=== PATIENT | female | born 1970 | race African-American/Black ===

== ENCOUNTER 2019-08-26 07:30 | Inpatient (IN) | payer SELFPAY ==
[2019-08-26] VITALS (10 sets, daily range): BP systolic 146–178; BP diastolic 95–124; BMI 34.8
[~2019-08-26] VITALS: Ht 157.5 cm; Wt 109.1 kg
[2019-08-26] MEDS ORDERED: IBUPROFEN IB100 MG PO (07:57)
[2019-08-26 10:21] LABS: ALBUMIN 3.2 g/dL (3.4-5.0); ANION GAP 14.4 mmol/L (8-16); BILIRUBIN - TOTAL 3.1 mg/dL (0.2-1.3); CALCIUM 8.4 mg/dL (8.5-10.1); CARBON DIOXIDE 23.4 mmol/L (21.0-32.0); CREATININE - SERUM 0.9 mg/dL (0.6-1.3); POTASSIUM - SERUM 3.8 mmol/L (3.5-5.1); PROTEIN - SERUM 6.4 g/dL (6.4-8.2)
[2019-08-26 10:28] LABS: TROPONIN-I 0.127 ng/mL (0.000-0.060)
--- NOTE | 2019-08-26 10:28 | NUR ---
CRITICAL LAB RCVD FROM [facility], LAB: TROPONIN 0.127, DR ARTEAGA NOTIFIED
--- NOTE | 2019-08-26 10:57 | NUR ---
2ND IV SITED FOR CTA
[2019-08-26 11:00] LABS: HEMATOCRIT 30.5 % (36.0-48.0); HEMOGLOBIN 10.6 g/dL (12-16); MCHC 34.8 g/dL (31.0-37.0); MCV 89.2 fL (80.0-100.0); PLATELET COUNT 360 10x3/uL (130-400); RBC 3.42 10x6/uL (4.00-5.40); RDW 20.3 % (11.5-14.5); WBC 14.9 10x3/uL (4.8-10.8)
--- NOTE | 2019-08-26 11:48 | NUR ---
RCVD TC FROM DR HOLM (RADIOLOGIST) + HUSSEIN PE AND MILD PULMONARY EDEMA VS PNA. DR ARTEAGA NOTIFIED
--- NOTE | 2019-08-26 11:49 | NUR ---
O2 SATS 89-91% ON RA O2 PLACED @ 2 L PNC AND IMMED IMPROVED TO 98 %
[2019-08-26 12:35] LABS: ANISOCYTOSIS 1+; LYMPHOCYTES 18 % (15-50); MONOCYTES 9 % (2-11); NEUTROPHILS 68 % (40-80); PLATELET ESTIMATE NORMAL; POIKILOCYTOSIS 1+; TARGET CELLS OCC
[2019-08-26 12:36] LABS: POLYCHROMASIA OCC; SCHISTOCYTES OCC
--- NOTE | 2019-08-26 13:46 | NUR ---
ATTEMPTED TO CALL REPORT, NURSE UNAVAILABLE
--- NOTE | 2019-08-26 14:21 | NUR ---
REPORT CALLED TO CHAKA HERRERA
--- NOTE | 2019-08-26 14:30 | NUR ---
TRANSPORTED TO ROOM #2111, CONDITION STABLE
--- NOTE | 2019-08-26 19:38 | NUR ---
PT ALERT AND ORIENTED X4 NEEDS SEEN TOO AT THIS TIME BED LOW AND LOCKED AND PT HAS CALL LIGHT FAMILY AT BEDSIDE
[2019-08-27] VITALS: BP 158/101
[2019-08-27 04:00] VITALS: BP 156/92
--- NOTE | 2019-08-27 05:14 | NUR ---
I have reviewed this patient and I concur with the Shift Assessment completed by the Licensed Practical Nurse today this shift.
[2019-08-27 08:12] LABS: % SATURATION 26 % (15-55); IRON 71 ug/dl (35-150); TOTAL IRON BIND CAPACITY 267 ug/dl (260-445); UNSAT IRON BIND CAPACITY 196 ug/dl (150-375)
--- NOTE | 2019-08-27 08:14 | NUR ---
REPORT RECIEVED. RR EVEN AND UNLABORED ON RA. PT HAS A R HAND PIV AND A R FA PIV INFUSING NS @ 30. BED LOCKED AND IN LOWEST POSITION, CALL LIGHT WITHIN REACH. WILL CTM.
[2019-08-27 08:30] LABS: ALBUMIN 3.1 g/dL (3.4-5.0); ALKALINE PHOSPHATASE 121 U/L (30-120); ALT (SGPT) 23 U/L (10-68); BILIRUBIN - TOTAL 1.86 mg/dL (0.2-1.3); CALC OSMOLALITY 282 mosm/kg (275-300); CALCIUM 8.3 mg/dL (8.5-10.1); CARBON DIOXIDE 27.3 mmol/L (21.0-32.0); CHLORIDE - SERUM 107 mmol/L (98-107); CKMB 1.2 U/L (0.0-3.6); CREATINE KINASE 20 UL (21-215); FERRITIN 203 ng/mL (3-244); GLUCOSE 108 mg/dL (74-106); PHOSPHOROUS 4.6 mg/dL (2.5-4.9); SODIUM 142 mmol/L (136-145); UREA NITROGEN 11 mg/dL (7-18); eGFR NON AFRICAN AMERICAN 63 mL/min (90-120)
[2019-08-27 08:34] LABS: POTASSIUM - SERUM 4.4 mmol/L (3.5-5.1)
[2019-08-27 08:35] LABS: TROPONIN-I 0.096 ng/mL (0.000-0.060)
[2019-08-27 09:55] LABS: HEMATOCRIT 29.4 % (36.0-48.0); HEMOGLOBIN 10.4 g/dL (12-16); MCH 31.4 pg (26.0-34.0); MCHC 35.4 g/dL (31.0-37.0); MCV 88.8 fL (80.0-100.0); MEAN PLATELET VOLUME 10.2 fL (7.4-10.4); PLATELET COUNT 347 10x3/uL (130-400); RBC 3.31 10x6/uL (4.00-5.40); RDW 18.9 % (11.5-14.5); WBC 16.7 10x3/uL (4.8-10.8)
[2019-08-27 10:04] VITALS: BP 140/82
[2019-08-27 11:02] LABS: EOSINOPHILS 1 % (0-7); LYMPHOCYTES 22 % (15-50); MONOCYTES 15 % (2-11); NEUTROPHILS 62 % (40-80); PLATELET ESTIMATE NORMAL
[2019-08-27 11:05] LABS: ANISOCYTOSIS OCC; POIKILOCYTOSIS OCC; POLYCHROMASIA OCC
[2019-08-27 11:06] LABS: ELLIPTOCYTES OCC; SCHISTOCYTES OCC
[2019-08-27 11:07] LABS: HYPOCHROMASIA OCC; ROULEAUX OCC
[2019-08-27 14:31] VITALS: BP 147/75
--- NOTE | 2019-08-27 18:17 | NUR ---
I have reviewed this patient and I concur with the Shift Assessment completed by the Licensed Practical Nurse today this shift.
[2019-08-27 18:56] VITALS: BP 147/85
--- NOTE | 2019-08-27 19:22 | NUR ---
AWAKE AND ALERT BED LOW AND LOCKED PT SEEMS TO BE IN PAIN BUT REFUSES PAIN MED AT THIS TIME NO OTHER NEEDS CALL LIGHT IS WITH PT
[2019-08-27 20:00] VITALS: BP 165/93
[2019-08-28] VITALS (7 sets, daily range): BP systolic 138–151; BP diastolic 84–100; Ht 157.5 cm; Wt 109.1 kg
--- NOTE | 2019-08-28 03:08 | NUR ---
I have reviewed this patient and I concur with the Shift Assessment completed by the Licensed Practical Nurse today this shift.
--- NOTE | 2019-08-28 07:42 | NUR ---
RECIEVED REPORT. PATIENT IS LAYING ON HER BACK IN BED AND DENIES ANY NEEDS AT THIS TIME. SHE IS AWARE THAT WE NEED TO COLLECT A STOOL FROM HER AND SIGN IS ON THE DOOR.
[2019-08-28 08:14] LABS: ALBUMIN 2.7 g/dL (3.4-5.0); ANION GAP 8.8 mmol/L (8-16); BILIRUBIN - TOTAL 1.27 mg/dL (0.2-1.3); CALCIUM 8.3 mg/dL (8.5-10.1); CREATININE - SERUM 0.9 mg/dL (0.6-1.3); MAGNESIUM - SERUM 2.1 mg/dL (1.8-2.4); PHOSPHOROUS 3.9 mg/dL (2.5-4.9); POTASSIUM - SERUM 3.8 mmol/L (3.5-5.1); PROTEIN - SERUM 5.9 g/dL (6.4-8.2)
[2019-08-28 08:32] LABS: HEMATOCRIT 28.5 % (36.0-48.0); HEMOGLOBIN 9.9 g/dL (12-16); MCH 30.8 pg (26.0-34.0); MCHC 34.7 g/dL (31.0-37.0); MCV 88.8 fL (80.0-100.0); MEAN PLATELET VOLUME 9.7 fL (7.4-10.4); PLATELET COUNT 384 10x3/uL (130-400); RBC 3.21 10x6/uL (4.00-5.40); RDW 19.1 % (11.5-14.5)
[2019-08-28 11:10] LABS: HAPTOGLOBIN 31 mg/dL (42-296)
--- NOTE | 2019-08-28 11:47 | EC ---
PATIENT:MADISON MARTINEZ DATE OF SERVICE: 08/26/19 SEX: F MEDICAL RECORD: [id number] DATE OF : [birth year] LOCATION:D.M2 D.211 AGE OF PATIENT: 49 ADMISSION DATE: 08/26/19 REFERRING PHYSICIAN: INTERPRETING PHYSICIAN: ACOSTA ZAMUDIO MD ECHOCARDIOGRAM REPORT ECHO CHARGES 4 ECHO COMPLETE Date: 08/26/19 CLINICAL DIAGNOSIS: ELEVATED TROPONIN, PULMONARY EDEMA ECHOCARDIOGRAPHIC MEASUREMENTS (adult normal given) AC root (d.<3.7cm) 2.3 cm LV Septum d (<1.2 cm> 1.1 cm Valve Excursion 1.7 cm LV Septum (systole) 1.2 cm Left Atria (s.<4.0cm> 3.5 cm LVPW d(<1.2cm) 0.9 cm RV (d.<2.3cm) 3.1 cm LVPW (sytole) 1.0 cm LV diastole(<5.6CM) 4.8 cm MV E-F(>70mm/sec) cm LV systole 4.0 cm LVOT Diameter 2.0 cm MV exc.(>10mm) cm Est.ejection fraction (50-75%) % DOPPLER: LVIT cm/sec A 85 cm/sec E 63 cm/sec LA cm/sec RVSP 43.4 mmHg LVOT 122 cm/sec AOP1/2T m/s Asc. Ao 134 cm/sec RVOT 61 cm/sec RA cm/sec PA 80 cm/sec AV Gradient Peak 7.1 mmHg AV Mean 4.7 mmHg AV Area 2.3 cm MV Gradient Peak 4.0 mmHg MV Mean 1.8 mmHg MV Area cm COMMENTS: Consulting Intern: Monique [facility] Welder And Fitter: 1 Dr. Zamudio TAPE# PACS Pericardial Effusion N DATE OF SERVICE: ECHOCARDIOGRAM FINDINGS: 1. Left ventricular chamber size is within normal limits. Left ventricular systolic function is preserved at 45% to 50%. 2. Left atrium, right atrium, and right ventricle chamber sizes are within normal limits. 3. Valvular structures have normal structure and motion. ECHOCARDIOGRAM REPORT [id number] MADISON MARTINEZ 4. Doppler interrogation reveals trace mitral regurgitation, mild tricuspid regurgitation, no other valvular insufficiency or stenosis. Pulmonary systolic pressure is estimated at 44 mmHg. 5. No evidence of pericardial effusion or left ventricular thrombus. TRANSINT:[id number] Voice Confirmation ID: [id number] DOCUMENT ID: [id number] ACOSTA ZAMUDIO MD at 1147 CC: [id number] DICTATION DATE: 08/27/19 1047 CYLINDER MACHINE OPERATOR PULP DRIER: 08/27/19 1140 ADM IN [place] [id number]
[2019-08-28 12:04] LABS: EOSINOPHILS 2 % (0-7); LYMPHOCYTES 22 % (15-50); MONOCYTES 9 % (2-11); NEUTROPHILS 62 % (40-80); PLATELET ESTIMATE NORMAL
[2019-08-28 12:05] LABS: ACANTHOCYTES OCC; ANISOCYTOSIS OCC; HYPOCHROMASIA 1+; POIKILOCYTOSIS OCC; SMUDGE CELLS OCC; SPHEROCYTES OCC; TARGET CELLS OCC
--- NOTE | 2019-08-28 14:39 | MORECARE ---
CASE MANAGEMENT DISCHARGE SUMMARY PATIENT: MADISON MARTINEZ UNIT: [id number] ADM DATE: 08/26/19 AGE: 49 : [birth year] SEX: F ROOM/BED: D.2111 AUTHOR: HIPOLITO AGUSTIN PHYSICIAN: REFERRING PHYSICIAN: KIRILL YAO MD DATE OF SERVICE: 08/28/19 Discharge Plan Patient Name: MADISON MARTINEZ Facility: [facility]:[place] : 1970 Planned Disposition: Home Anticipated Discharge Date: Discharge Date: Expected LOS: Initial Reviewer: [email or web address] Initial Review Date: 08/28/2019 Generated: 08/28/19 3:39 pm Patient Name: MADISON MARTINEZ Page 69923 at 1439 All edits/amendments must be made on the electronic document DICTATION DATE: 08/28/19 1439 ELEMENT BURNER: CHAD 08/28/19 1439 RPT#: [id number] DC DATE: STATUS: ADM IN [facility] [address] [place] [address] END OF REPORT
--- NOTE | 2019-08-28 14:47 | MORECARE ---
CASE MANAGEMENT DISCHARGE SUMMARY PATIENT: MADISON MARTINEZ UNIT: [id number] ADM DATE: 08/26/19 AGE: 49 : 72 SEX: F ROOM/BED: D.2111 AUTHOR: HIPOLITO AGUSTIN PHYSICIAN: REFERRING PHYSICIAN: KIRILL YAO MD DATE OF SERVICE: 08/28/19 Discharge Plan Patient Name: MADISON MARTINEZ [facility] : 1970 Planned Disposition: Home Anticipated Discharge Date: Discharge Date: Expected LOS: Initial Reviewer: [email or web address] Initial Review Date: 08/28/2019 Generated: 08/28/19 3:46 pm DCPIA - Discharge Planning Initial Assessment Updated by [email or web address]: Abran Hannon on 08/28/19 2:41 pm * Is the patient Alert and Oriented? Yes * How many steps to enter\exit or inside your home? NONE * PCP NONE - [facility] * Pharmacy [facility] * Preadmission Environment Home Alone * ADLs Independent * Equipment None * Other Equipment NO MEDICAL EQUIPMENT PROVIDER PREFERENCE * List name and contact numbers for known caregivers / representatives who currently or will assist patient after discharge: DANNY JARAMILLO, DTR, * Verbal permission to speak to the caregivers and representatives has been obtained from the patient. N/A * Community resources currently utilized None * Please name any agencies selected above. NONE * Additional services required to return to the preadmission environment? No * Can the patient safely return to the preadmission environment? Yes * Has this patient been hospitalized within the prior 30 days at any hospital? No Last DP export: 08/28/19 1:39 p Patient Name: MADISON MARTINEZ Page 17448 at 1447 All edits/amendments must be made on the electronic document DICTATION DATE: 08/28/191445 CREATIVE SERVICES COORDINATOR: CHAD 08/28/191445 RPT#: [id number] DC DATE: STATUS: ADM IN [facility] [address] [place] [address] END OF REPORT
--- NOTE | 2019-08-28 14:55 | MORECARE ---
CASE MANAGEMENT DISCHARGE SUMMARY PATIENT: MADISON MARTINEZ UNIT: [id number] ADM DATE: 08/26/19 AGE: 49 : 72 SEX: F ROOM/BED: D.2111 AUTHOR: VAMSI,DOC PHYSICIAN: REFERRING PHYSICIAN: KIRILL YAO MD DATE OF SERVICE: 08/28/19 Discharge Plan Patient Name: MADISON MARTINEZ Facility: [facility]:[place] : 1970 Planned Disposition: Home Anticipated Discharge Date: Discharge Date: Expected LOS: Initial Reviewer: [email or web address] Initial Review Date: 08/28/2019 Generated: 08/28/19 3:54 pm DCP- Discharge Planning Updated by [email or web address]: Abran Hannon on 08/28/19 1:[address] Patient Name: MADISON MARTINEZ Admission Status: ER Accout number: [id number] Admission Date: 08-26-2019 : 1970 Admission Diagnosis: Attending: KIRILL YAO Current LOS: 2 Anticipated DC Date: Planned Disposition: Home Primary Insurance: UNINSURED DISCOUNT PLAN Discharge Planning Comments: CM MET WITH PT IN ROOM TO DISCUSS DISCHARGE PLANNING AND NEEDS. PT REPORTS LIVING AT HOME INDEPENDENTLY AND ALONE. PT LIVES IN FIRST FLOOR APARTMENT. PT LIVES IN FIRST FLOOR APARTMENT, PT'S DAUGHTER LIVES NEARBY IN UPSTAIRS APARTMENT IN THE [place]. PT HAS NO MEDICAL EQUIPMENT AND NO OUTSIDE SERVICES ASSISTING IN THE HOME. CM DISCUSSED AVAILABILITY OF HOME HEALTH, REHAB SERVICES AND MEDICAL EQUIPMENT. PT DENIES DISCHARGE NEEDS, REPORTS HER DAUGHTER WILL PICK HER UP FOR DISCHARGE HOME. PT STATES SHE DID NOT KNOW HER INSURANCE WAS NOT IN EFFECT UNTIL SHE WENT TO THE DOCTOR AND DOES NOT KNOW WHAT HAPPENED TO IT. PT WOULD LIKE TO SPEAK TO SOMEONE WHO MAY BE ABLE TO LOOK INTO IT, SHE THINKS SHE IS SUPPOSED TO HAVE [employer] PRIVATE OPTION INSURANCE. CM CALLED DARIUSZ OF [employer], LEFT MESSAGE ASKING FOR HIM TO SEE PT FOR SCREENING. PT PLANS TO DISCHARGE HOME ALONE, HAS NO ANTICIPATED DISCHARGE NEEDS AT THIS TIME. FAMILY TO TRANSPORT HOME AT DISCHARGE. CM TO FOLLOW AND ASSIST IF NEEDED. Inner Diameter Grinder Tool: Abran Hannon DCPIA - Discharge Planning Initial Assessment Updated by [email or web address]: Abran Hannon on 08/28/19 2:41 pm * Is the patient Alert and Oriented? Yes * How many steps to enter\exit or inside your home? NONE * PCP NONE - [facility] * Pharmacy [facility] * Preadmission Environment Home Alone * ADLs Independent * Equipment None * Other Equipment NO MEDICAL EQUIPMENT PROVIDER PREFERENCE * List name and contact numbers for known caregivers / representatives who currently or will assist patient after discharge: DANNY JARAMILLO, DTR, * Verbal permission to speak to the caregivers and representatives has been obtained from the patient. N/A * Community resources currently utilized None * Please name any agencies selected above. NONE * Additional services required to return to the preadmission environment? No * Can the patient safely return to the preadmission environment? Yes * Has this patient been hospitalized within the prior 30 days at any hospital? No Last DP export: 08/28/19 1:47 p Patient Name: MADISON MARTINEZ Page [phone] at 1454 All edits/amendments must be made on the electronic document DICTATION DATE: 08/28/191453 PLASTERER MAINTENANCE: CHAD 08/28/191453 RPT#: [id number] DC DATE: STATUS: ADM IN [facility] [address] [place] [address] END OF REPORT
[2019-08-28 15:12] LABS: ACLA - IGG AB <9 GPL U/mL (0-14); ACLA - IGM AB <9 MPL U/mL (0-12)
--- NOTE | 2019-08-28 20:25 | NUR ---
PT LYING IN BED AWAKE ALERT AND ORIENTED. NO SIGNS OR SYMPTOMS OF DISTRESS NOTED. RESPIRATIONS EVEN AND UNLABORED. PRN PAIN MEDICATION AND ZOFRAN GIVEN FOR 10/10 PAIN LEVEL. PT ENCOURAGED TO CALL FOR HELP WHEN GETTING IN AND OUT OF BED. CALL LIGHT IS WITH IN REACH. WILL CONTINUE TO MONITOR.
--- NOTE | 2019-08-29 03:07 | NUR ---
PT ALERT AND ORIENTED x4. NO SIGNS OR SYMPTOMS OF DISTRESS NOTED. PT COMPLAINED OF 8/10 PAIN LEVEL. PRN MORPHINE AND ZOFRAN GIVEN. PT UP AID STEPHANIE. CONTINENT OF BOWELL AND BLADDER. BOWELL SOUNDS ACTIVE x4. PT STATES LAST BOWELL MOVEMENT WAS 08/28/19. IV 20G RIGHT HAND SALINE LOCKED. 20G RIGHT WRIST SALINE LOCKED. PT HAS TELEMETRY 84 SINUS RYTHUM. FAMILY BROUGHT PT SOMETHING TO EAT. PT ENCOUARGED TO CALL FOR HELP WHEN NEEDED. CALL LIGHT WITHIN REACH AND BEDS INLOWEST POSITION. WILL CONTINUE TO MONITOR.
[2019-08-29 04:23] VITALS: BP 130/70
--- NOTE | 2019-08-29 05:33 | NUR ---
I have reviewed this patient and I concur with the Shift Assessment completed by the Licensed Practical Nurse today this shift.
[2019-08-29 06:13] LABS: HEMATOCRIT 28.9 % (36.0-48.0); MCHC 34.6 g/dL (31.0-37.0); MCV 89.5 fL (80.0-100.0); MEAN PLATELET VOLUME 9.5 fL (7.4-10.4); PLATELET COUNT 401 10x3/uL (130-400); RBC 3.23 10x6/uL (4.00-5.40); RDW 18.8 % (11.5-14.5); WBC 15.3 10x3/uL (4.8-10.8)
[2019-08-29 06:40] LABS: ALBUMIN 2.7 g/dL (3.4-5.0); ALKALINE PHOSPHATASE 122 U/L (30-120); ALT (SGPT) 22 U/L (10-68); CALC OSMOLALITY 284 mosm/kg (275-300); CALCIUM 8.3 mg/dL (8.5-10.1); CARBON DIOXIDE 31.5 mmol/L (21.0-32.0); CHLORIDE - SERUM 107 mmol/L (98-107); CREATININE - SERUM 0.8 mg/dL (0.6-1.3); GLUCOSE 92 mg/dL (74-106); MAGNESIUM - SERUM 2.2 mg/dL (1.8-2.4); POTASSIUM - SERUM 4.2 mmol/L (3.5-5.1); PROTEIN - SERUM 5.8 g/dL (6.4-8.2); SODIUM 144 mmol/L (136-145); eGFR NON AFRICAN AMERICAN 81 mL/min (90-120)
[2019-08-29 06:41] LABS: UREA NITROGEN 6 mg/dL (7-18)
--- NOTE | 2019-08-29 07:30 | NUR ---
RECEIVED PT IN BED EYES CLOSED RESP UNLABORED SKIN W/D COLOR WNL NAD NOTED WILL CONTINUE MONITOR
--- NOTE | 2019-08-29 08:26 | MORECARE ---
CASE MANAGEMENT DISCHARGE SUMMARY PATIENT: MADISON MARTINEZ UNIT: [id number] ADM DATE: 08/26/19 AGE: 49 : 72 SEX: F ROOM/BED: D.2111 AUTHOR: VAMSIDOC PHYSICIAN: REFERRING PHYSICIAN: KIRILL YAO MD DATE OF SERVICE: 08/29/19 Discharge Plan Patient Name: MADISON MARTINEZ Facility: [facility]:[place] : 1970 Planned Disposition: Home Anticipated Discharge Date: Discharge Date: Expected LOS: Initial Reviewer: [email or web address] Initial Review Date: 08/28/2019 Generated: 08/29/19 9:26 am Comments DCP- Discharge Planning Updated by [email or web address]: Abran Hannon on 08/29/19 7:[address] Patient Name: MADISON MARTINEZ Encounter No: [id number] : 1970 Primary Insurance: UNINSURED DISCOUNT PLAN Anticipated DC Date: Planned Disposition: Home DCP follow-up note: CM SPOKE TO DARIUSZ OF [employer], PT DOES NOT HAVE CURRENT INSURANCE AND IS OVER INCOME FOR MEDICAID. PT NOTIFIED. PT PLANS TO DISCHARGE HOME ALONE, HAS NO ANTICIPATED DISCHARGE NEEDS AT THIS TIME. FAMILY TO TRANSPORT HOME AT DISCHARGE. CM TO FOLLOW AND ASSIST IF NEEDED. Cleaning Associate: Abran Hannon DCP- Discharge Planning Updated by [email or web address]: Abran Hannon on 08/28/19 1:[address] Patient Name: MADISON MARTINEZ Admission Status: ER Accout number: [id number] Admission Date: 08-26-2019 : 1970 Admission Diagnosis: Attending: KIRILL YAO Current LOS: 2 Anticipated DC Date: Planned Disposition: Home Primary Insurance: UNINSURED DISCOUNT PLAN Discharge Planning Comments: CM MET WITH PT IN ROOM TO DISCUSS DISCHARGE PLANNING AND NEEDS. PT REPORTS LIVING AT HOME INDEPENDENTLY AND ALONE. PT LIVES IN FIRST FLOOR APARTMENT. PT LIVES IN [place] FLO[place] APARTMENT, PT'S DAUGHTER LIVES NEARBY IN UPSTAIRS APARTMENT IN THE [place]. PT HAS NO MEDICAL EQUIPMENT AND NO OUTSIDE SERVICES ASSISTING IN THE HOME. CM DISCUSSED AVAILABILITY OF HOME HEALTH, REHAB SERVICES AND MEDICAL EQUIPMENT. PT DENIES DISCHARGE NEEDS, REPORTS HER DAUGHTER WILL PICK HER UP FOR DISCHARGE HOME. PT STATES SHE DID NOT KNOW HER INSURANCE WAS NOT IN EFFECT UNTIL SHE WENT TO THE DOCTOR AND DOES NOT KNOW WHAT HAPPENED TO IT. PT WOULD LIKE TO SPEAK TO SOMEONE WHO MAY BE ABLE TO LOOK INTO IT, SHE THINKS SHE IS SUPPOSED TO HAVE [employer] PRIVATE OPTION INSURANCE. CM CALLED DARIUSZ OF [employer], LEFT MESSAGE ASKING FOR HIM TO SEE PT FOR SCREENING. PT PLANS TO DISCHARGE HOME ALONE, HAS NO ANTICIPATED DISCHARGE NEEDS AT THIS TIME. FAMILY TO TRANSPORT HOME AT DISCHARGE. CM TO FOLLOW AND ASSIST IF NEEDED. Cleaning Associate: Abran Hannon DCPIA - Discharge Planning Initial Assessment Updated by [email or web address]: Abran Hannon on 08/28/19 2:41 pm * Is the patient Alert and Oriented? Yes * How many steps to enter\exit or inside your home? NONE * PCP NONE - [facility] * Pharmacy [facility] * Preadmission Environment Home Alone * ADLs Independent * Equipment None * Other Equipment NO MEDICAL EQUIPMENT PROVIDER PREFERENCE * List name and contact numbers for known caregivers / representatives who currently or will assist patient after discharge: DANNY JARAMILLO, DTR, * Verbal permission to speak to the caregivers and representatives has been obtained from the patient. N/A * Community resources currently utilized None * Please name any agencies selected above. NONE * Additional services required to return to the preadmission environment? No * Can the patient safely return to the preadmission environment? Yes * Has this patient been hospitalized within the prior 30 days at any hospital? No Last DP export: 08/28/19 1:55 p Patient Name: MADISON MARTINEZ Page 85719 at 0826 All edits/amendments must be made on the electronic document DICTATION DATE: 08/29/19825 TRANSPORTATION LEAD: CHAD 08/29/19825 RPT#: [id number] DC DATE: STATUS: ADM IN [facility] [address] [place] [address] END OF REPORT
[2019-08-29 08:47] VITALS: BP 141/88
[2019-08-29 09:10] LABS: PROTEIN S - FREE 95 % (57-157); PROTEIN S - TOTAL 74 % (60-150)
[2019-08-29 11:06] LABS: ACANTHOCYTES OCC; EOSINOPHILS 1 % (0-7); LYMPHOCYTES 34 % (15-50); MONOCYTES 19 % (2-11); NEUTROPHILS 46 % (40-80); PLATELET ESTIMATE INCREASED; ROULEAUX OCC; SCHISTOCYTES OCC; TARGET CELLS OCC
[2019-08-29 11:07] LABS: ANISOCYTOSIS 1+; SMUDGE CELLS OCC; SPHEROCYTES OCC
[2019-08-29 11:10] LABS: LUPUS - INTERPRETATION Comment: (()); LUPUS - THROMBIN TIME 18.9 sec (0.0-23.0); LUPUS - dRVVT 42.9 sec (0.0-47.0); PROTEIN S - FREE 92 % (57-157); PROTEIN S - FUNCTIONAL 68 % (63-140); PROTEIN S - TOTAL 77 % (60-150); PTT-LA 36.7 sec (0.0-51.9)
[2019-08-29 12:42] VITALS: BP 132/83
--- NOTE | 2019-08-29 12:48 | CN ---
PATIENT NAME:MADISON OSULLIVAN MEDICAL RECORD: [id number] : 72 LOCATION:D. D.2111 ADMIT DATE: 08/26/19 ACCOUNT: [id number] CONSULTING PHYSICIAN: ACOSTA EDWARDS MD REFERRING PHYSICIAN: KIRILL YAO MD DATE OF CONSULTATION: 08/28/2019 CARDIOLOGY CONSULTATION DIAGNOSES: 1. Paroxysmal atrial fibrillation. 2. Hypertension. 3. Sickle cell disease. 4. Pulmonary embolus. 5. Increased troponin. 6. Pulmonary hypertension. 7. Cardiomyopathy. HISTORY OF PRESENT ILLNESS: Ms. Osullivan presents with generalized weakness and shortness of breath. No real chest pain. Found to have a pulmonary embolus. She does have a mildly elevated troponin. Echocardiogram was performed. She has an ejection fraction in the 45% to 50% range. Mild pulmonary hypertension with pulmonary systolic pressures in the mid 40s. She has hypertension with systolic blood pressures in the 140-180 range as well. She has had a short run of atrial fibrillation. PHYSICAL EXAMINATION: CONSTITUTIONAL/GENERAL APPEARANCE: Well nourished, well developed, appears stated age. EYES: Lids and conjunctivae noninjected. No discharge. No pallor. ENT: Lips within normal limit. No cyanosis. No pallor. NECK: Carotid arteries, bilateral normal upstroke. No bruits. No thrills. No jugular venous pressure or distention. CERVICAL LYMPH NODES: Nontender. Nonenlarged. THYROID: Not enlarged. No nodules. CARDIOVASCULAR: Precordial exam, nondisplaced. No heaves or pericardial thrills. Rate and rhythm, regular. Heart sounds, normal S1, normal S2. No S3, no gallop, no rub. Systolic murmur, not heard. Diastolic murmur, not heard. RESPIRATORY: Respiratory effort, unlabored. Normal curvature. No thoracic deformity. No chest wall tenderness. Percussion, resonant. Auscultation, clear. No wheezes, no rales, no rhonchi. ABDOMEN: Soft, nondistended, nontender. No abdominal pain, no vomiting and normal appetite. MUSCULOSKELETAL: No joint tenderness, normal gait, normal tone. SKIN: Warm and dry. OVERALL IMPRESSION: Increased troponin secondary to the pulmonary emboli. She did not have ventricular tachycardia. She had a short run of atrial fibrillation. This is most likely related to the pulmonary process as well. We will start her on a beta-mami. We will start Toprol ER 50 mg a day. She should need no other cardiac workup or treatment. TRANSINT:[id number] Voice Confirmation ID: [id number] DOCUMENT ID: [id number] CONSULT REPORT [id number] MADISON OSULLIVAN, ACOSTA RAYO at 1248 CC: [id number] DICTATION DATE: 08/28/1935 RELEASE OF INFORMATION SPECIALIST: 08/28/19 1229 [place] [address]
[2019-08-29 14:09] LABS: HGB - A2 5.2 % (1.8-3.2); HGB - C 45.3 % (0.0); HGB - INTERPRETATION Note: (()); HGB - S 49.5 % (0.0); HGB - SOLUBILITY Positive (Negative)
[2019-08-29 14:36] LABS: INR 1.04 (0.85-1.17); PROTIME 13.5 SECONDS (11.6-15.0)
[2019-08-29 17:14] VITALS: BP 144/80
--- NOTE | 2019-08-29 19:45 | NUR ---
PT LYING INBED AWAKE ALERT AND ORIENTED x4 NO SIGNS OR SYMPTOMS OF DISTRESS NOTED. RESPIRATIONS EVEN AND UNLABORED. PT ON 3L NASAL CANULA. PT REQUEST TO TAKE BATH. PT ENCOURAGED TO USE CALL LIGHT WHEN NEEDED. CALL LIGHT WITH IN REACH AND BED IS IN LOWEST POSITION. WILL CONTINUE TO MONITOR.
[2019-08-29 20:30] VITALS: BP 127/76
--- NOTE | 2019-08-29 22:59 | NUR ---
SHOWER DONE AND BED LINEN CHANGED. CALL IGHT WITH IN REACH AND BED IN LOWEST POSITION WILL CONTINUE TO MONITOR.
--- NOTE | 2019-08-30 00:10 | NUR ---
I have reviewed this patient and I concur with the Shift Assessment completed by the Licensed Practical Nurse today this shift.
--- NOTE | 2019-08-30 00:34 | NUR ---
PRN PAIN MEDICATION GIVEN FOR 10/10 PAIN LEVEL. PT ENCOURAGED TO CALL FOR HELP WHEN NEDDED. CALL LIGHT WITH IN REACH AND BED IN LOWEST POSITION.
--- NOTE | 2019-08-30 02:01 | NUR ---
PT LYIING IN BED RESTING WITH EYES CLOSED. EASILY AWAKEN WITH VOICE STIMULATION. NO SIGNS OR SYMPTOMS OF DISTRESS NOTED. PT ON 2L NASAL CANULA. NO COMPLAINTS OF PAIN AT THIS TIME. CALL LIGHT WITH IN REACH AND BED IS IN LOWEST POSITION. WILL CONTINUE TO MONITOR.
[2019-08-30 04:07] LABS: PROTEIN C - ANTIGEN 113 % (60-150); PROTEIN C - FUNCTIONAL 151 % (73-180)
[2019-08-30 06:01] LABS: ALBUMIN 2.8 g/dL (3.4-5.0); ANION GAP 9.1 mmol/L (8-16); BILIRUBIN - TOTAL 0.79 mg/dL (0.2-1.3); CALCIUM 8.4 mg/dL (8.5-10.1); CARBON DIOXIDE 30.5 mmol/L (21.0-32.0); MAGNESIUM - SERUM 2.3 mg/dL (1.8-2.4); PHOSPHOROUS 5.1 mg/dL (2.5-4.9); POTASSIUM - SERUM 4.6 mmol/L (3.5-5.1); PROTEIN - SERUM 6.2 g/dL (6.4-8.2)
[2019-08-30 06:29] LABS: HEMATOCRIT 30.4 % (36.0-48.0); HEMOGLOBIN 10.3 g/dL (12-16); MCH 30.8 pg (26.0-34.0); MCHC 33.9 g/dL (31.0-37.0); MEAN PLATELET VOLUME 10.7 fL (7.4-10.4); PLATELET COUNT 398 10x3/uL (130-400); RBC 3.34 10x6/uL (4.00-5.40); RDW 19.6 % (11.5-14.5); WBC 14.6 10x3/uL (4.8-10.8)
--- NOTE | 2019-08-30 07:35 | NUR ---
ASSESSMENT DONE. DENIES NEEDS
[2019-08-30 08:22] VITALS: BP 134/79
--- NOTE | 2019-08-30 12:32 | NUR ---
PATIENT AMBULATED IN HALLWAY WITH RT. PATIENT AMBULATING ROOM AIR SP02 82%. PLACED PATIENT ON 2L NC AND SP02 88%, INCREASED TO 3L WHILE AMBULATING AND PATIENT SP02 94%.
[2019-08-30 12:44] LABS: ANISOCYTOSIS 1+; EOSINOPHILS 2 % (0-7); HYPOCHROMASIA OCC; LYMPHOCYTES 23 % (15-50); MONOCYTES 8 % (2-11); NEUTROPHILS 65 % (40-80); PLATELET ESTIMATE INCREASED; PLATELET MORPHOLOGY PLT CLUMPS PRESENT; POIKILOCYTOSIS OCC; POLYCHROMASIA OCC; SICKLE CELLS 1+
[2019-08-30 13:19] VITALS: BP 127/74
--- NOTE | 2019-08-30 14:51 | MORECARE ---
CASE MANAGEMENT DISCHARGE SUMMARY PATIENT: MADISON MARTINEZ UNIT: [id number] ADM DATE: 08/26/19 AGE: 49 : 72 SEX: F ROOM/BED: D.2118 AUTHOR: VAMSIDOC PHYSICIAN: REFERRING PHYSICIAN: KIRILL YAO MD DATE OF SERVICE: 08/30/19 Discharge Plan Patient Name: MADISON MARTINEZ Facility: [facility]:[place] : 1970 Planned Disposition: Home Anticipated Discharge Date: 08/30/19 Discharge Date: Expected LOS: 4 Initial Reviewer: [email or web address] Initial Review Date: 08/28/2019 Generated: 08/30/19 3:50 pm DCP- Discharge Planning Updated by [email or web address]: Abran Hannon on 08/29/19 7:[address] Patient Name: MADISON MARTINEZ Encounter No: [id number] : 1970 Primary Insurance: UNINSURED DISCOUNT PLAN Anticipated DC Date: Planned Disposition: Home DCP follow-up note: CM SPOKE TO DARIUSZ OF [employer], PT DOES NOT HAVE CURRENT INSURANCE AND IS OVER INCOME FOR MEDICAID. PT NOTIFIED. PT PLANS TO DISCHARGE HOME ALONE, HAS NO ANTICIPATED DISCHARGE NEEDS AT THIS TIME. FAMILY TO TRANSPORT HOME AT DISCHARGE. CM TO FOLLOW AND ASSIST IF NEEDED. Ui Engineer: Abran Hannon DCP- Discharge Planning Updated by [email or web address]: Abran Hannon on 08/28/19 1:[address] Patient Name: MADISON MARTINEZ Admission Status: ER Accout number: [id number] Admission Date: 08-26-2019 : 1970 Admission Diagnosis: Attending: KIRILL YAO Current LOS: 2 Anticipated DC Date: Planned Disposition: Home Primary Insurance: UNINSURED DISCOUNT PLAN Discharge Planning Comments: CM MET WITH PT IN ROOM TO DISCUSS DISCHARGE PLANNING AND NEEDS. PT REPORTS LIVING AT HOME INDEPENDENTLY AND ALONE. PT LIVES IN FIRST FLOOR APARTMENT. PT LIVES IN FIRST FLOOR APARTMENT, PT'S DAUGHTER LIVES NEARBY IN UPSTAIRS APARTMENT IN THE [place]. PT HAS NO MEDICAL EQUIPMENT AND NO OUTSIDE SERVICES ASSISTING IN THE HOME. CM DISCUSSED AVAILABILITY OF HOME HEALTH, REHAB SERVICES AND MEDICAL EQUIPMENT. PT DENIES DISCHARGE NEEDS, REPORTS HER DAUGHTER WILL PICK HER UP FOR DISCHARGE HOME. PT STATES SHE DID NOT KNOW HER INSURANCE WAS NOT IN EFFECT UNTIL SHE WENT TO THE DOCTOR AND DOES NOT KNOW WHAT HAPPENED TO IT. PT WOULD LIKE TO SPEAK TO SOMEONE WHO MAY BE ABLE TO LOOK INTO IT, SHE THINKS SHE IS SUPPOSED TO HAVE [employer] PRIVATE OPTION INSURANCE. CM CALLED DARIUSZ OF [employer], LEFT MESSAGE ASKING FOR HIM TO SEE PT FOR SCREENING. PT PLANS TO DISCHARGE HOME ALONE, HAS NO ANTICIPATED DISCHARGE NEEDS AT THIS TIME. FAMILY TO TRANSPORT HOME AT DISCHARGE. CM TO FOLLOW AND ASSIST IF NEEDED. Ui Engineer: Abran Hannon DCPIA - Discharge Planning Initial Assessment Updated by [email or web address]: Abran Hannon on 08/28/19 2:41 pm * Is the patient Alert and Oriented? Yes * How many steps to enter\exit or inside your home? NONE * PCP NONE - [facility] * Pharmacy [facility] * Preadmission Environment Home Alone * ADLs Independent * Equipment None * Other Equipment NO MEDICAL EQUIPMENT PROVIDER PREFERENCE * List name and contact numbers for known caregivers / representatives who currently or will assist patient after discharge: DANNY JARAMILLO, DTR, * Verbal permission to speak to the caregivers and representatives has been obtained from the patient. N/A * Community resources currently utilized None * Please name any agencies selected above. NONE * Additional services required to return to the preadmission environment? No * Can the patient safely return to the preadmission environment? Yes * Has this patient been hospitalized within the prior 30 days at any hospital? No External Providers External Provider: [facility] Next Contact Date: 08/30/2019 Service Request Date: Service Type: Resolution: Reviewer: Comments: Last DP export: 08/29/19 7:26 a Patient Name: MADISON MARTINEZ Page [phone] at 1451 All edits/amendments must be made on the electronic document DICTATION DATE: 08/30/19 145 KETTLE COOK: CHAD 08/30/19 145 RPT#: [id number] DC DATE: STATUS: ADM IN [facility] [address] [facility] [place] [address] END OF REPORT
--- NOTE | 2019-08-30 15:07 | MORECARE ---
CASE MANAGEMENT DISCHARGE SUMMARY PATIENT: MADISON MARTINEZ UNIT: [id number] ADM DATE: 08/26/19 AGE: 49 : 72 SEX: F ROOM/BED: D.2111 AUTHOR: VAMSI,DOC PHYSICIAN: REFERRING PHYSICIAN: KIRILL YAO MD DATE OF SERVICE: 08/30/19 Discharge Plan Patient Name: MADISON MARTINEZ Facility: [facility]:[place] : 1970 Planned Disposition: Home Anticipated Discharge Date: 08/30/19 Discharge Date: Expected LOS: 4 Initial Reviewer: [id number] Initial Review Date: 08/28/2019 Generated: 08/30/19 4:07 pm DCP- Discharge Planning Updated by [email or web address]: Abran Hannon on 08/30/19 2:[address] Patient Name: MADISON MARTINEZ Encounter No: [id number] : 1970 Primary Insurance: UNINSURED DISCOUNT PLAN Anticipated DC Date: 08-30-2019 Planned Disposition: Home DCP follow-up note: CM RECEIVED OXYGEN TESTING, PT QUALIFIES FOR HOME OXYGEN. CM SPOKE TO PT IN ROOM WHO REQUESTED [facility]ER[facility] AND CAN AFFORD TO SELF PAY FOR HER OXYGEN. CM PROVIDED PT WITH ELI[facility]IS FREE 30 DAY PRESCRIPTION CARD WELL $10 MONTHLY COPAY CARD, PT DOES QUALIFY FOR EACH PROGRAM. CM NOTIFIED SURY SAM AND DR. YAO. CHOICE SIGNED FOR AEROCARE. PT DENIES FURTHER NEEDS. CM CALLED [facility], , SPOKE TO GENI AND PROVIDED REFERRAL INFORMATION. CM FAXED REFERRAL TO [facility], . ELLIOTTDVISED THEY WILL MAKE SELF PAY ARRANGEMENTS WITH PT AND DELIVER PORTABLE OXYGEN TO HOSPITAL TODAY AND WILL ARRANGE HOME OXYGEN WHEN PT ARRIVES AT HOME AFTER DISCHARGE. ZAHIDA Miles DCP- Discharge Planning Updated by [id number]: Abran Hannon on 08/29/19 7:[address] Patient Name: MADISON MARTINEZ Encounter No: [id number] : 1970 Primary Insurance: UNINSURED DISCOUNT PLAN Anticipated DC Date: Planned Disposition: Home DCP follow-up note: CM SPOKE TO [facility] [employer] [facility], PT DOES NOT HAVE CURRENT INSURANCE AND IS OVER INCOME FOR MEDICAID. PT NOTIFIED. PT PLANS TO DISCHARGE HOME ALONE, HAS NO ANTICIPATED DISCHARGE NEEDS AT THIS TIME. FAMILY TO TRANSPORT HOME AT DISCHARGE. CM TO FOLLOW AND ASSIST IF NEEDED. Registry Np: Abran Hannon DCP- Discharge Planning Updated by [id number]: Abran Hannon on 08/28/19 1:[address] Patient Name: MADISON MARTINEZ Admission Status: ER Accout number: [id number] Admission Date: 08-26-2019 : 1970 Admission Diagnosis: Attending: KIRILL YAO Current LOS: 2 Anticipated DC Date: Planned Disposition: Home Primary Insurance: UNINSURED DISCOUNT PLAN Discharge Planning Comments: CM MET WITH PT IN ROOM TO DISCUSS DISCHARGE PLANNING AND NEEDS. PT REPORTS LIVING AT HOME INDEPENDENTLY AND ALONE. PT LIVES IN [place] FLOOR APARTMENT. PT LIVES IN FIRST FLOOR APARTMENT, PT'S DAUGHTER LIVES NEARBY IN UPSTAIRS APARTMENT IN THE [place]. PT HAS NO MEDICAL EQUIPMENT AND NO OUTSIDE SERVICES ASSISTING IN THE HOME. CM DISCUSSED AVAILABILITY OF HOME HEALTH, REHAB SERVICES AND MEDICAL EQUIPMENT. PT DENIES DISCHARGE NEEDS, REPORTS HER DAUGHTER WILL PICK HER UP FOR DISCHARGE HOME. PT STATES SHE DID NOT KNOW HER INSURANCE WAS NOT IN EFFECT UNTIL SHE WENT TO THE DOCTOR AND DOES NOT KNOW WHAT HAPPENED TO IT. PT WOULD LIKE TO SPEAK TO SOMEONE WHO MAY BE ABLE TO LOOK INTO IT, SHE THINKS SHE IS SUPPOSED TO HAVE [employer] PRIVATE OPTION INSURANCE. CM CALLED DARIUSZ OF [employer], LEFT MESSAGE ASKING FOR HIM TO SEE PT FOR SCREENING. PT PLANS TO DISCHARGE HOME ALONE, HAS NO ANTICIPATED DISCHARGE NEEDS AT THIS TIME. FAMILY TO TRANSPORT HOME AT DISCHARGE. CM TO FOLLOW AND ASSIST IF NEEDED. Registry Np: Abran Hannon DCPIA - Discharge Planning Initial Assessment Updated by [id number]: Abran Hannon on 08/28/19 2:41 pm * Is the patient Alert and Oriented? Yes * How many steps to enter\exit or inside your home? NONE * PCP NONE - [facility] * Pharmacy [facility] * Preadmission Environment Home Alone * ADLs Independent * Equipment None * Other Equipment NO MEDICAL EQUIPMENT PROVIDER PREFERENCE * List name and contact numbers for known caregivers / representatives who currently or will assist patient after discharge: DANNY JARAMILLO, YANNIR, * Verbal permission to speak to the caregivers and representatives has been obtained from the patient. N/A * Community resources currently utilized None * Please name any agencies selected above. NONE * Additional services required to return to the preadmission environment? No * Can the patient safely return to the preadmission environment? Yes * Has this patient been hospitalized within the prior 30 days at any hospital? No Coverage Notice Reviewer: [id number] - Abran Hannon Notice Issued Date-Time: 08/30/2019 14:40 Notice Type: Patient Choice Letter Notice Delivered To: Patient Relationship to Patient: Factory Lay Out Engineer Name: Delivery Method: HAND - Hand Delivered Lavinia Days: Prior Verbal Notification: Recipient Understood Notice: Yes Recipient Signature: Yes Med Rec Note Co-signed by Attending: Coverage Notice Comment: RADHA Vogel DP export: 08/30/19 1:51 p Patient Name: MADISON MARTINEZ Page [id number] at 1507 All edits/amendments must be made on the electronic document DICTATION DATE: 08/30/19 1507 ELECTRICIAN HELPER: CHAD 08/30/19 1507 RPT#: [id number] DC DATE: STATUS: ADM IN [facility] [address] [place] [address] END OF REPORT
[2019-08-30 17:14] VITALS: BP 122/78
[2019-08-30] MEDS ORDERED: FOLIC ACID1 MG PO (19:23)
[2019-08-30] MEDS ORDERED: ELIQUIS5 MG PO (19:25)
--- NOTE | 2019-08-30 19:59 | NUR ---
ORDERS RECIEVED TO DO WALK TEST AND PT CAN DC HOME AFTER. RT NOTIFIED. RODDY RT AT BED SIDE, DROPED PT FROM O3 AT 3 LITERS TO RA. AFTER APPROX 2.5 MINUTES PTS O2 SAT DROPPEDTO 84% RA. WALK TEST UNABLE TO BE DONE AT THIS TIME. IRVIN BRANCH APN NOTIFIED.
[2019-08-30 20:16] VITALS: BP 120/73
[2019-08-31] VITALS: BP 120/64
--- NOTE | 2019-08-31 02:06 | NUR ---
I have reviewed this patient and I concur with the Shift Assessment completed by the Licensed Practical Nurse today this shift.
[2019-08-31 05:13] LABS: ALBUMIN 2.6 g/dL (3.4-5.0); ANION GAP 3.4 mmol/L (8-16); BILIRUBIN - TOTAL 0.76 mg/dL (0.2-1.3); CALCIUM 8.8 mg/dL (8.5-10.1); CARBON DIOXIDE 35.1 mmol/L (21.0-32.0); CREATININE - SERUM 0.9 mg/dL (0.6-1.3); MAGNESIUM - SERUM 2.2 mg/dL (1.8-2.4); PHOSPHOROUS 4.2 mg/dL (2.5-4.9); POTASSIUM - SERUM 4.5 mmol/L (3.5-5.1); PROTEIN - SERUM 6.2 g/dL (6.4-8.2)
[2019-08-31 05:14] LABS: BASOPHILS 0.3 % (0-2); EOSINOPHILS 1.4 % (0-7); HEMOGLOBIN 9.7 g/dL (12-16); IMMATURE GRANULOCYTES 0.5 % (0-5); LYMPHOCYTES 16.9 % (15-50); MCH 30.5 pg (26.0-34.0); MCHC 33.4 g/dL (31.0-37.0); MCV 91.2 fL (80.0-100.0); MEAN PLATELET VOLUME 9.5 fL (7.4-10.4); NEUTROPHILS 65.9 % (40-80); PLATELET COUNT 438 10x3/uL (130-400); RBC 3.18 10x6/uL (4.00-5.40); RDW 19.1 % (11.5-14.5); WBC 14.7 10x3/uL (4.8-10.8)
[2019-08-31 05:16] VITALS: BP 130/84
--- NOTE | 2019-08-31 07:00 | NUR ---
RECEIVED REPORT. ASSUMED CARE OF PATIENT. CALL LIGHT WITHIN REACH. PATIENT LYING IN BED COMPLETEING DUONEB TREATMENT AT THIS TIME. RESP EVEN AND UNLABORED. PATIENT REQUEST LARGE CUP OF ICE AT THIS TIME. NO DISTRESS.
--- NOTE | 2019-08-31 07:15 | NUR ---
ICE PROVIDED REQUESTED. DUONEB COMPLETED.
[2019-08-31 08:00] VITALS: BP 120/69
--- NOTE | 2019-08-31 08:45 | NUR ---
20 GAUGE IV REMOVED FROM LEFT FOREARM. CATHETER TIP INTACT. NO BLEEDING FROM SITE. 2X2 GAUZE APPLIED AND SECURED WITH BANDAID. TOLERATED IV REMOVAL WELL PATIENT IS BEING DISCHARGED TO HOME.
--- NOTE | 2019-08-31 09:34 | NUR ---
MEDICATED FOR PAIN AT THIS TIME. NO DISTRESS.
--- NOTE | 2019-08-31 11:16 | NUR ---
RESTING IN BED WITH ATTENTION TOWARD TELEVISION. NO DISTRESS. CALL LIGHT WITHIN REACH. FRESH ICE WATER PROVIDED.
[2019-08-31 11:34] VITALS: BP 134/68
[2019-08-31] MEDS ORDERED: ELIQUIS5 MG PO ×2 (13:51)
[2019-08-31] MEDS ORDERED: AZITHROMYCIN500 MG PO (13:53)
[2019-08-31] MEDS ORDERED: OMNICEF300 MG PO (13:53)
--- NOTE | 2019-08-31 14:00 | NUR ---
TELEMETRY REMOVED. 20 GAUGE IV REMOVED FROM RIGHT FOREARM. CATHETER TIP INTACT. NO BLEEDING FROM SITE. 2X2 GAUZE APPLIED AND SECURED WITH BANDAID. PATIENT DISCHARGING TO HOME.
--- NOTE | 2019-08-31 14:33 | NUR ---
PATIENT LEFT UNIT VIA WHEELCHAIR WITH ALL PERSONAL BELONGINGS. PATIENT DISCHARGED TO HOME IN STABLE CONDITION. PATIENT [facility]. PATIENT DISCHARGED TO HOME WITH HER DAD.
--- NOTE | 2019-09-01 18:14 | MORECARE ---
CASE MANAGEMENT DISCHARGE SUMMARY PATIENT: MADISON MARTINEZ UNIT: [id number] ADM DATE: 08/26/19 AGE: 49 : 72 SEX: F ROOM/BED: D.2111 AUTHOR: VAMSI,DOC PHYSICIAN: REFERRING PHYSICIAN: KIRILL YAO MD DATE OF SERVICE: 09/01/19 Discharge Plan Patient Name: MADISON MARTINEZ Facility: [facility]:[place] : 1970 Planned Disposition: Home Anticipated Discharge Date: 08/30/19 Discharge Date: 08/31/2019 Expected LOS: 4 Initial Reviewer: [id number] Initial Review Date: 08/28/2019 Generated: 09/01/19 7:14 pm DCP- Discharge Planning Updated by [id number]: Abran Hannon on 08/30/19 2:[address] Patient Name: MADISON MARTINEZ Encounter No: [id number] : 1970 Primary Insurance: UNINSURED DISCOUNT PLAN Anticipated DC Date: 08-30-2019 Planned Disposition: Home DCP follow-up note: CM RECEIVED OXYGEN TESTING, PT QUALIFIES FOR HOME OXYGEN. CM SPOKE TO PT IN ROOM WHO REQUESTED [facility] AND CAN AFFORD TO SELF PAY FOR HER OXYGEN. CM PROVIDED PT WITH [facility] FREE 30 DAY PRESCRIPTION CARD WELL $10 MONTHLY COPAY CARD, PT DOES QUALIFY FOR EACH PROGRAM. CM NOTIFIED SURY SAM AND DR. YAO. CHOICE SIGNED FOR [facility]ER[facility]. PT DENIES FURTHER NEEDS. CM CALLED [facility], , SPOKE TO GENI AND PROVIDED REFERRAL INFORMATION. CM FAXED REFERRAL TO [facility], . ELLIOTTDVISED THEY WILL MAKE SELF PAY ARRANGEMENTS WITH PT AND DELIVER PORTABLE OXYGEN TO HOSPITAL TODAY AND WILL ARRANGE HOME OXYGEN WHEN PT ARRIVES AT HOME AFTER DISCHARGE. Abran Hannon, CASE ENRIQUE DCP- Discharge Planning Updated by [id number]: Abran Hannon on 08/29/19 7:[address] Patient Name: MADISON MARTINEZ Encounter No: [id number] : 1970 Primary Insurance: UNINSURED DISCOUNT PLAN Anticipated DC Date: Planned Disposition: Home DCP follow-up note: CM SPOKE TO DARIUSZ OF [employer], PT DOES NOT HAVE CURRENT INSURANCE AND IS OVER INCOME FOR MEDICAID. PT NOTIFIED. PT PLANS TO DISCHARGE HOME ALONE, HAS NO ANTICIPATED DISCHARGE NEEDS AT THIS TIME. FAMILY TO TRANSPORT HOME AT DISCHARGE. CM TO FOLLOW AND ASSIST IF NEEDED. Forest Law And Policy Professor: Abran Hannon DCP- Discharge Planning Updated by [id number]: Abran Hannon on 08/28/19 1:[address] Patient Name: MADISON MARTINEZ Admission Status: ER Accout number: [id number] Admission Date: 08-26-2019 : 1970 Admission Diagnosis: Attending: KIRILL YAO Current LOS: 2 Anticipated DC Date: Planned Disposition: Home Primary Insurance: UNINSURED DISCOUNT PLAN Discharge Planning Comments: CM MET WITH PT IN ROOM TO DISCUSS DISCHARGE PLANNING AND NEEDS. PT REPORTS LIVING AT HOME INDEPENDENTLY AND ALONE. PT LIVES IN [place] FLOOR APARTMENT. PT LIVES IN [place]LO[place] APARTMENT, PT'S DAUGHTER LIVES NEARBY IN UPSTAIRS APARTMENT IN THE [place]. PT HAS NO MEDICAL EQUIPMENT AND NO OUTSIDE SERVICES ASSISTING IN THE HOME. CM DISCUSSED AVAILABILITY OF HOME HEALTH, REHAB SERVICES AND MEDICAL EQUIPMENT. PT DENIES DISCHARGE NEEDS, REPORTS HER DAUGHTER WILL PICK HER UP FOR DISCHARGE HOME. PT STATES SHE DID NOT KNOW HER INSURANCE WAS NOT IN EFFECT UNTIL SHE WENT TO THE DOCTOR AND DOES NOT KNOW WHAT HAPPENED TO IT. PT WOULD LIKE TO SPEAK TO SOMEONE WHO MAY BE ABLE TO LOOK INTO IT, SHE THINKS SHE IS SUPPOSED TO HAVE [employer] PRIVATE OPTION INSURANCE. CM CALLED DARIUSZ OF [employer], LEFT MESSAGE ASKING FOR HIM TO SEE PT FOR SCREENING. PT PLANS TO DISCHARGE HOME ALONE, HAS NO ANTICIPATED DISCHARGE NEEDS AT THIS TIME. FAMILY TO TRANSPORT HOME AT DISCHARGE. CM TO FOLLOW AND ASSIST IF NEEDED. Forest Law And Policy Professor: Abran Hannon DCPIA - Discharge Planning Initial Assessment Updated by [id number]: Abran Hannon on 08/28/19 2:41 pm * Is the patient Alert and Oriented? Yes * How many steps to enter\exit or inside your home? NONE * PCP NONE - [facility] * Pharmacy [facility] * Preadmission Environment Home Alone * ADLs Independent * Equipment None * Other Equipment NO MEDICAL EQUIPMENT PROVIDER PREFERENCE * List name and contact numbers for known caregivers / representatives who currently or will assist patient after discharge: DANNY JARAMILLO, JODI, * Verbal permission to speak to the caregivers and representatives has been obtained from the patient. N/A * Community resources currently utilized None * Please name any agencies selected above. NONE * Additional services required to return to the preadmission environment? No * Can the patient safely return to the preadmission environment? Yes * Has this patient been hospitalized within the prior 30 days at any hospital? No Coverage Notice Reviewer: [id number] - Abran Mgwell Notice Issued Date-Time: 08/30/2019 14:40 Notice Type: Patient Choice Letter Notice Delivered To: Patient Relationship to Patient: Director Emergency Department Name: Delivery Method: HAND - Hand Delivered Lavinia Days: Prior Verbal Notification: Recipient Understood Notice: Yes Recipient Signature: Yes Med Rec Note Co-signed by Attending: Coverage Notice Comment: RADHA Vogel DP export: 08/30/19 2:07 p Patient Name: MADISON MARTINEZ Page 13423 at 1814 All edits/amendments must be made on the electronic document DICTATION DATE: 09/01/191813 INFORMATION SYSTEMS ADMINISTRATOR: CHAD 09/01/191813 RPT#: [id number] DC DATE:08/31/19 STATUS: DIS IN [facility] [address] [place] [address] END OF REPORT
[2019-09-03 07:12] LABS: FACTOR II DNA ANALYSIS Negative (())
== END 2019-08-31 14:35 | disposition home or self-care (01) | DRG 175 ==
LOC: D.ER 07:30 → D.M2 12:17
PROVIDERS: Family Medicine; Internal Medicine Hematology & Oncology; ADMIT Internal Medicine Nephrology; ATTEND Internal Medicine Nephrology
DX: I26.99 Other pulmonary embolism without acute cor pulmonale (principal); J18.9 Pneumonia, unspecified organism; J96.21 Acute and chronic respiratory failure with hypoxia; I16.1 Hypertensive emergency; D57.1 Sickle-cell disease without crisis; E66.01 Morbid (severe) obesity due to excess calories; Z68.34 Body mass index [BMI] 34.0-34.9, adult; F12.90 Cannabis use, unspecified, uncomplicated

== ENCOUNTER 2020-03-27 08:14 | Inpatient (IN) | payer SELFPAY ==
[~2020-03-27] VITALS: Ht 157.5 cm; Wt 107.7 kg
--- NOTE | ~2020-03-27 | HEMODYNAMI ---
PATIENT:MADISON MARTINEZ MEDICAL RECORD: [id number] : 72 LOCATION:[address] ADMISSION DATE: 03/27/20 Generatedon:03/28/202010:02 Patient name: MADISON MARTINEZ Patient #: [id number] SSN: : 1970 Date of study: 03/28/2020 Page: Of Hemodynamic Procedure Report Patient Data Patient Demographics Procedure consent was obtained First Name: MADISON Gender: Female Last Name: JUAN : 1970 Patient #: [id number] Age: 49 year(s) Race: Black Additional ID: [id number] Contact details [address]: [address] [place] [address] [address] State: [place] City: [place] Zip code: [address] Past Medical History Allergies Allergen Reaction Date Comments Reported Other allergy 03/28/2020 NKDA Admission Admission Data Admission Date: 03/27/2020 Admission Time: 12:37 Room #: D.2127 Height (in.): 61.81 BSA: 1.89 (m2) Height (cm.): 157 BMI: 36.11 (kg/m2) Weight (lbs.): 196.21 Weight (kg.): 89 Lab Results Lab Result Date: 03/28/2020 Lab Result Time: 0:00 Biochemistry Name Units Result Min Max BUN mg/dl 25 --(----)-* 7 18 Creatinine mg/dl 1.3 --(---*)-- 0.6 1.3 eGFR ml/min 56 *-(----)-- 90 120 AM CBC Name Units Result Min Max Hematocrit % 27.4 *-(----)-- 42 54 Hemoglobin g/dl 9.8 *-(----)-- 13.5 17.5 Procedure Procedure Types Cath Procedure Diagnostic Procedure LHC LHC w/Coronaries Procedure Description Procedure Date Procedure Date: 03/28/2020 Procedure Start Time: 9:51 Procedure End Time: 10:00 Procedure Staff Name Function Jace Alcantara MD Performing Physician Lou Gil RT Monitor Sommerdb Elizondo RT Scrub Alvin Shelley RN Nurse Procedure Data Cath Procedure Fluoroscopy Diagnostic fluoroscopy Total fluoroscopy Time: 1 time: 1 min min Diagnostic fluoroscopy Total fluoroscopy dose: 325 dose: 325 mGy mGy Contrast Material Contrast Material Type Amount (ml) Isovue 300 54 Entry Location Entry Primary Successful Side Size Upsize Upsize Entry Closure Succes sful Closure Location (Fr) 1 (Fr) 2 (Fr) Remarks Device Remarks Femoral Right 5 Fr Exoseal artery Estimated blood loss: 5 ml Diagnostic catheters Device Type Used For End Catheter Placement MULTIPACK JL 4.0 5Fr Left Coronary catheter Angiography MULTIPACK 3DRC 5Fr Right Coronary catheter Angiography MULTIPACK Pigtail 5 Fr LV Angiography catheter Procedure Complications No complications Procedure Medications Medication Administration Route Dosage Oxygen etCO2 Nasal cannula 2 l/min Lidocaine 2% added to field 20 Heparin Flush Bag added to field 2 bags (1000units/500ml NS) 0.9% NaCl I.V. 100 ml/hr Versed I.V. 1 mg Fentanyl I.V. 50 mcg Hemodynamics Rest BSA: 1.89 (m2) HGB: 9.8 (g/dl) O2 Consumption: Estimated: 149.02 (ml/min) O2 Con sumption indexed: Estimated:78.85 (ml/min/m) Heart Rate: 18 (bpm) Pressure Samples Time Site Value (mmHg) Purpose Heart Use Rate(bpm) 9:55 LV 96/22,19 Snapshot 117 Gradients Valve Time Site Site Mean SEP/DFP Peak To Heart Use 1 2 (mmHg) (sec/min) Peak Rate (mmHg) (bpm) Aortic 9:56 LV AO 97 Snapshots Pre Cath Intra NCS Post Cath Vital Signs Time Heart Resp SPO2 etCO2 NIBP (mmHg) Rhythm Pain Sedation Rate (ipm) (%) (mmHg) Status Level (bpm) 9:45:56 105 41 95 24.7 169/106(143) NSR 0 (11) 10(A) , No pain 9:50:35 112 29 98 27.7 145/98(114) NSR 0 (11) 9(A) , No pain 9:55:05 117 32 95 29.9 155/97(113) NSR 0 (11) 10(A) , No pain 9:58:30 116 35 95 30.7 155/91(117) NSR 0 (11) 10(A) , No pain Medications Time Medication Route Dose Verified Delivered Reason Notes Effe ctiveness by by 9:45:32 Oxygen etCO2 2 Jace Franciscoie used for Nasal l/min [facility] Jose Luis Shelley RN procedure cannula MD 9:45:44 Lidocaine 2% added 20ml Jace Jace for local to vial [facility] anesthetic field MD RAYO 9:45:50 Heparin Flush added 2 Jace Jace used for Bag to bags [facility] procedure (1000units/500ml field MD RAYO NS) 9:46:03 0.9% NaCl I.V. 100 Jace Singhie Per ml/hr St Jose Luis Shelley RN physician 9:48:42 Versed I.V. 1 mg Jace Franciscoie for [facility] Jose Luis Shelley RN sedation 9:48:48 Fentanyl I.V. [address] m[address] Jose Luis Shelley RN sedation Procedure Log Time Note 9:04:01 Informed consent obtained and on chart 9:04:33 Procedure Status Urgent Heart Cath (IP). 9:04:33 Time tracking: Regular hours (M-F 7:00 - 5:00) 9:04:37 Plan of Care:Hemodynamics will remain stable., Cardiac rhythm will remain stable., Comfort level will be maintained., Respiratory function will remain adequate., Patient/ family verbilizes understanding of procedure., Procedure tolerated without complication., Recovers from procedure without complications.. 9:13:33 Lab Result : Hemoglobin 9.8 g/dl 9:13:33 Lab Result : eGFR AM 56 ml/min 9:13:33 Lab Result : BUN 25 mg/dl 9:13:33 Lab Result : Creatinine 1.3 mg/dl 9:13:33 Lab Result : Hematocrit 27.4 % 9:14:44 Patient Height : 61.81 inches 9:14:51 Patient Weight : 196.21 lbs 9:15:18 Patient allergic to Other allergyNKDA 9:15:29 H&P Date Dictated: 03/28/2020 Within 30 days and on chart., ER History o n chart.. 9:15:42 Lab results completed and on chart. 9:20:15 Sommer Elizondo RT(R) sent for patient. Start room use. 9:31:44 Patient received from Med II to CCL 1 Alert and oriented. Tansferred to table in Supine position. 9::47 Warm blankets applied, and opal hugger turned on for patient comfort. 9::48 Correct patient and procedure confirmed by team. 9::48 ECG and BP/O2 sat monitors applied to patient. 9:44:32 Vital chart was started 9:44:35 Baseline sample Acquired. 9:44:50 Rhythm: sinus tachycardia 9:44:52 Full Disclosure recording started 9:44:53 - 9:44:58 Pre-procedure instructions explained to patient. 9:44:59 Pre-op teaching completed and patient verbalized understanding. 9:45:05 Family unavailable. 9:45:08 Patient NPO since Midnight. 9:45:11 Is the patient allergic to Iodine/contrast media? No. 9:45:21 Was the patient premedicated? Yes 9:45:24 Is patient on blood thinner?Yes 9:45:32 Oxygen 2 l/min etCO2 Nasal cannula was administered by Alvin Shelley RN; used for procedure; Verbal order read back and verified. 9:45:35 ACC The patient was administered the following blood thiners within the last 24 hours: ACCLovenox 9:45:39 Patient diabetic? No. 9:45:44 Lidocaine 2% 20ml vial added to field was administered by Jace Alcantara MD; for local anesthetic; Verbal order read back and verified. 9:45:47 HCG/Urine : completed and on chart, negative 9:45:49 ----Pre-sedation anethsthesia assessment.---- 9:45:50 Heparin Flush Bag (1000units/500ml NS) 2 bags added to field was administered by Jace Alcantara MD; used for procedure; Verbal order read back and verified. 9:45:53 Previous problem with sedation/anesthesia? No ? 9:45:56 Snore? Yes 9:45:59 Sleep apnea? No 9:46:01 Deviated septum? Unknown 9:46:03 0.9% NaCl 100 ml/hr I.V. was administered by Alvin Shelley RN; Per physician; Verbal order read back and verified. 9:46:04 Opens mouth fully? Yes 9:46:08 Sticks out tongue? Yes 9:46:12 Airway obstruction? No ? 9:46:16 Dentures? No ? 9:46:35 Pre procedure: right dorsailis pedis pulse 2+ Normal; easily identifiable; not easily obliterated 9:46:44 IV patent on arrival in right wrist with 0.9% NaCl at [facility]. 9:46:52 Stress Test: no; N/A ? 9:47:01 Right groin area was prepped with chlora-prep and draped in sterile fashion 9:47:03 Alarms reviewed by R. N. 9:47:04 Sharps counted by scrub and verified by R.N. 9:47:14 Use device set Femoral Dx 9:47:16 ACIST Syringe (69859) opened to sterile field. 9:47:17 Bag Decanter (2002S) opened to sterile field. 9:47:18 Medline Cath Pack ([id number]) opened to sterile field. 9:47:19 ACIST Hand Control (14114) opened to sterile field. 9:47:20 ACIST Manifold (32100) opened to sterile field. 9:47:22 Tegaderm 4 x 4 (1626W) opened to sterile field. 9:47:23 DIAGNOSTIC Multipack 5Fr catheter set (GM1585) opened to sterile field. 9:47:25 SHEATH 5FR Stone (YSE238) opened to sterile field. 9:47:26 EMERALD Guide Wire (797-256) opened to sterile field. 9:47:38 Physician arrived 9:47:39 --------ALL STOP TIME OUT------ 9:47:40 Final Timeout: patient, procedure, and site verified with staff and physician. All members of the team are in agreement. 9:47:42 Right groin site verified by team. 9:47:47 Fire Safety Assessment: A--An alcohol-based skin anteseptic being used preoperatively., C--Open oxygen or nitrous oxide is being used., D--An ESU, laser, or fiber-optic light is being used. 9:47:51 Physical assessment completed. ASA score P 2 - A patient with mild systemic disease as per Jace Alcantara MD. 9:47:58 3a) 45-59 Moderately reduced kidney function. 9:48:02 Maximum allowable contrast dose (3.7 X eGFR X 0.75)155 ml. 9:48:10 Sedation plan: IV Moderate Sedation Medication:Versed, Fentanyl 9:48:42 Versed 1 mg I.V. was administered by Alvin Shelley RN; for sedation; Verbal order read back and verified. 9:48:48 Fentanyl 50 mcg I.V. was administered by Alvin Shelley RN; for sedation; Verbal order read back and verified. 9:51:08 Procedure started. 9:51:28 Zero performed for pressure channel P1 9:51:44 Local anesthetic to right femoral artery with Lidocaine 2% by Jace Amaya MD.INITIAL ACCESS ONLY 9:51:57 A 5 Fr sheath was inserted into the Right Femoral artery 9:52:04 A MULTIPACK JL 4.0 5Fr catheter was advanced over the wire and used for Left Coronary Angiography. 9:52:52 LCA angiography performed. 9:52:55 Injector settings: Ml/sec: 3, Volume: 6, 9:53:18 Catheter removed. 9:53:27 A MULTIPACK 3DRC 5Fr catheter was advanced over the wire and used for Right Coronary Angiography. 9:53:36 RCA angiography performed. 9:53:41 Injector settings: Ml/sec: 3, Volume: 6, 9:54:24 Catheter removed. 9:54:31 A MULTIPACK Pigtail 5 Fr catheter was advanced over the wire and used for LV Angiography. 9:54:44 Injector settings: Ml/sec: 5, Volume: 15, 9:54:55 LV gram done using ANDERS 9:56:20 EF : 55 % 9:56:22 LV hemodynamics recorded. 9:56:25 EXOSEAL 5Fr (EX500) opened to sterile field. 9:56:27 Catheter removed. 9:56:37 Contrast amount:Isovue 300 54ml. 9:56:41 Maximum allowable dose exceeded? No. 9:56:47 Fluoroscopy time 01.00 minutes. 9:56:52 Fluoroscopy dose: 325 mGy 9:56:52 Flurop Dose total: 325 9:56:59 Dose Area Product 45678 mGy/cm. 9:57:08 Sheath removed intact; hemostasis achieved with Exoseal to the Right Femoral artery. 9:57:10 Procedure ended.(Physican Out) 9:57:13 Sharps counted by scrub and verified by R.N. 9:57:19 Post-op/insertion site Right Femoral artery dressed using a 4 x 4 and Tegaderm. 9:57:24 Post-procedure physical assessment completed. ASA score P 2 - A patient with mild systemic disease as per Jace Alcantara MD. 9:57:29 Post procedure rhythm: unchanged. 9:57:34 Estimated blood loss: 5 ml 9:57:36 Post procedure instruction explained to patient.Patient verbalizes understanding. 9:57:37 Patient needs reinforcement of post procedure teaching. 9:59:41 Procedure and supply charges have been captured, reviewed, submitted an d are correct. 9:59:52 Procedure Complication : No complications 9:59:57 Vital chart was stopped 10:00:00 [facility] Findings: mild to moderate CAD (<70%) 10:00:02 See physician's report for complete and final results. 10:00:08 Report given to Med II. 10:00:20 Patient transfered to Med II with Bed. 10:00:25 Procedure ended. 10:00:25 Full Disclosure recording stopped 10:00:29 End room use (Document Last) Device Usage Item Name Manufacture Quantity Catalog Hospital Part Current Minimal L ot# / Number Charge Number Stock Stock Serial# Code ACIST Acist 1 21397 074934 790822 137146 20 Syringe Medical (38315) Systems Inc Bag Microtek 1 119694 13936 711529 5 Decanter Medical Inc. () Medline Medline 1 [id number] 292743 76234 820271 5 Cath Pack ([id number]) ACIST Hand Acist 1 53086 413907 470177 041328 5 Control Medical (95758) Systems Inc ACIST Acist 1 17176 698633 058145 663870 5 Manifold Medical (03748) Systems Inc Tegaderm 4 3M 1 1626W 515231 398236 322502 5 x 4 (1626W) DIAGNOSTIC Cardinal 1 QX3033 753360 50782 852934 30 [facility] Gaikai 5Fr catheter set (DY2588) SHEATH 5FR Terumo 1 DBO924 863478 631272 635986 5 Stone (KCU663) [facility] Cardinal 1 995-030 600124 114811 039701 5 Guide Wire Health (174-639) MULTIPACK Cardinal 1 295759 5 JL 4.0 5Fr Health catheter MULTIPACK Cardinal 1 136932 5 3DRC 5Fr Health catheter MULTIPACK Cardinal 1 643440 5 Pigtail 5 Health Fr catheter EXOSEAL 5Fr Cardinal 1 EX500 992362 349210 469405 10 (EX500) Health Signature Audit [employer] Stage Time Signature Unsigned Intra-Procedure 03/28/2020 Lou 10:00:58 AM Louise RT(R) (CV) Intra-Procedure 03/28/2020 Alvin Shelley RN 10:01:43 AM Intra-Procedure 03/28/2020 Jace Wong 10:02:26 AM Jose Luis RAYO [address] [place] [address]
[~2020-03-27 08:14] MED LIST: AZITHROMYCIN500 MG PO; ELIQUIS5 MG PO; FOLIC ACID1 MG PO; IBUPROFEN IB100 MG PO; OMNICEF300 MG PO
[2020-03-27 09:19] LABS: CALC OSMOLALITY 278 mosm/kg (275-300); CALCIUM 8.5 mg/dL (8.5-10.1); CARBON DIOXIDE 20.2 mmol/L (21.0-32.0); CHLORIDE - SERUM 103 mmol/L (98-107); CREATININE - SERUM 1.6 mg/dL (0.6-1.3); GLUCOSE 118 mg/dL (74-106); POTASSIUM - SERUM 4.4 mmol/L (3.5-5.1); SODIUM 137 mmol/L (136-145); UREA NITROGEN 24 mg/dL (7-18); eGFR NON AFRICAN AMERICAN 36 mL/min (90-120)
[2020-03-27 09:23] LABS: APTT 34.4 SECONDS (22.8-39.4); INR 1.25 (0.85-1.17); PROTIME 15.6 SECONDS (11.6-15.0)
[2020-03-27 09:41] LABS: ALBUMIN 3.2 g/dL (3.4-5.0); ALKALINE PHOSPHATASE 107 U/L (30-120); ALT (SGPT) 33 U/L (10-68); BILIRUBIN - TOTAL 3.59 mg/dL (0.2-1.3); CKMB 2.4 U/L (0.0-3.6); CREATINE KINASE 78 UL (21-215); HEMATOCRIT 29.3 % (36.0-48.0); HEMOGLOBIN 10.3 g/dL (12-16); MCHC 35.2 g/dL (31.0-37.0); MCV 88.3 fL (80.0-100.0); MEAN PLATELET VOLUME 9.7 fL (7.4-10.4); PLATELET COUNT 276 10x3/uL (130-400); PRO BNP 15274 pg/mL (0-125); PROTEIN - SERUM 7.3 g/dL (6.4-8.2); RBC 3.32 10x6/uL (4.00-5.40); RDW 20.4 % (11.5-14.5); WBC 22.1 10x3/uL (4.8-10.8)
[2020-03-27 09:45] LABS: TROPONIN-I 0.252 ng/mL (0.000-0.060)
--- NOTE | 2020-03-27 09:47 | NUR ---
ELEVATED TROPONIN CALLED FROM LAB, ER PROVIDER NOTIFIED.
[2020-03-27 10:00] VITALS: BP 123/89
[2020-03-27 11:00] VITALS: BP 112/74
[2020-03-27 12:10] VITALS: BP 152/86
[2020-03-27 12:34] LABS: ANISOCYTOSIS OCC; EOSINOPHILS 2 % (0-7); HYPOCHROMASIA OCC; LYMPHOCYTES 34 % (15-50); MONOCYTES 12 % (2-11); NEUTROPHILS 49 % (40-80); PLATELET ESTIMATE NORMAL; ROULEAUX OCC; SMUDGE CELLS OCC
[2020-03-27 13:00] VITALS: BP 144/89
[2020-03-27 15:02] VITALS: BP 122/90; BMI 35.7
--- NOTE | 2020-03-27 15:11 | NUR ---
RECEIVED PT FROM ER. PT IS AAO AND UP AD STEPHANIE. NO S/S OF DISTRESS NOTED. PT ORIENTED TO ROOM. QUICKSTART, HISTORY, ASSESSMENT, AND MED REQ COMPLETED. RR EVEN AND UNLABORED ON 3L 02. LUNG SOUNDS CLEAR. PT DENIES ANY NEEDS AT THIS TIME. VSS AND WNL. WILL CTM.
[2020-03-27 20:30] VITALS: BP 134/72
--- NOTE | 2020-03-27 22:00 | NUR ---
LAB REPORTED NEGATIVE COVID RESULTS, PT TRANSFERED TO ROOM 2127.
--- NOTE | 2020-03-27 23:30 | NUR ---
PT C/O OF GENERALIZED BACK, CHEST, AND LEG PAIN. DENIES THAT IT FEELS LIKE PRESSURE. STATES "IT ALL HURTS LIKE HELL" ONSET OBSERVED TO BE AT 2200. PT LIPS PALLOR, 92-91% ON 2LNC. PT TACHYPENIC, WITH SOME DISTRESS. NEW ORDERS RECEIVED, REPEAT EKG DONE, NO CHANGES NOTED.
[2020-03-28 00:30] VITALS: BP 138/81
[2020-03-28 00:31] LABS: CKMB 2.6 U/L (0.0-3.6); CREATINE KINASE 93 UL (21-215)
--- NOTE | 2020-03-28 00:59 | NUR ---
PT NOW DROWSY, STATES THE MORPHINE WAS EFFECTIVE, CHEST PAIN STILL PRESENT. NO DISTRESS OBSERVED AT THIS TIME. PAIN NOW RATED AT A 6/10, PT CONTINUES TO BE IN THE 80'S SR ON TELEMETRY. DENIES NECK PAIN, OR PAIN THAT RADIATES. NO FURTHER NEEDS EXPRESSED. DENIES N/V. ENCOURAGED CALL LIGHT FOR ASSISTANCE. WILL CTM.
--- NOTE | 2020-03-28 03:02 | NUR ---
PT AWAKE AGAIN, C/O OF CHEST AND BACK PAIN. NOW DESCRIBED TINGLING AND SHARP AT TIMES. WILL CTM.
[2020-03-28 04:30] VITALS: BP 132/65
--- NOTE | 2020-03-28 04:59 | NUR ---
PT IN BED STILL C/O OF PAIN, GRUNTING. NO DISTRESS OBSERVED. WILL CTM.
[2020-03-28 05:08] LABS: HEMATOCRIT 27.4 % (36.0-48.0); HEMOGLOBIN 9.8 g/dL (12-16); MCH 31.7 pg (26.0-34.0); MCHC 35.8 g/dL (31.0-37.0); MCV 88.7 fL (80.0-100.0); MEAN PLATELET VOLUME 9.3 fL (7.4-10.4); PLATELET COUNT 273 10x3/uL (130-400); RBC 3.09 10x6/uL (4.00-5.40); RDW 20.1 % (11.5-14.5); WBC 42.4 10x3/uL (4.8-10.8)
[2020-03-28 05:21] LABS: ANION GAP 16.9 mmol/L (8-16); CALCIUM 8.4 mg/dL (8.5-10.1); CARBON DIOXIDE 20.9 mmol/L (21.0-32.0); CREATININE - SERUM 1.3 mg/dL (0.6-1.3); MAGNESIUM - SERUM 2.1 mg/dL (1.8-2.4); PHOSPHOROUS 4.1 mg/dL (2.5-4.9); POTASSIUM - SERUM 4.8 mmol/L (3.5-5.1)
[2020-03-28 05:40] LABS: EOSINOPHILS 2 % (0-7); LYMPHOCYTES 26 % (15-50); MONOCYTES 16 % (2-11); NEUTROPHILS 56 % (40-80)
[2020-03-28 05:41] LABS: PLATELET ESTIMATE NORMAL
--- NOTE | 2020-03-28 07:00 | NUR ---
RECEIVED REPORT. ASSUMED CARE OF PATIENT. PATIENT COMPLAINED OF GENERALIZED PAIN, PATIENT ALSO NOTED TO BE DIAPHORETIC. ASSISTED PATIENT OOB TO USE RESTROOM, LINENS AND GOWN CHANGED, ASSISTED PATIENT BACK TO BED. NEW TELEMETRY LEADS APPLIED AND MORPHINE ADMINISTERED FOR PAIN. CALL LIGHT WITHIN REACH. RESTING IN BED, HOB ELEVATED. WAITING CARDIOLOGY CONSULT AT THIS TIME. SR ON TELEMETRY, RATE 98.
--- NOTE | 2020-03-28 07:55 | NUR ---
IV FLUIDS D/C'D ORDERED AND ZITHROMAX INFUSING AT THIS TIME. RESTING MORE COMFORTABLE AT THIS TIME AFTER RECEIVING MORPHINE. CALLL LIGHT WITHIN REACH.
--- NOTE | 2020-03-28 08:05 | NUR ---
PER , ZITHROMAX STOPPED AT THIS TIME DUE TO ELEVATED BNP, ASA 3258MG ADMINISTERED AT THIS TIME.
--- NOTE | 2020-03-28 09:28 | NUR ---
PREOP MEDS FOR SKEIN YARD DRIER ADMINISTERED AT THIS TIME.
--- NOTE | 2020-03-28 09:30 | NUR ---
PATIENT LEFT VIA BED FOR CLEANING PROFESSIONAL AT THIS TIME.
[2020-03-28 09:31] LABS: HCG SERUM NEGATIVE (NEGATIVE)
[2020-03-28 09:42] LABS: HEMATOCRIT 26.9 % (36.0-48.0); HEMOGLOBIN 9.6 g/dL (12-16); MCH 31.5 pg (26.0-34.0); MCHC 35.7 g/dL (31.0-37.0); MCV 88.2 fL (80.0-100.0); PLATELET COUNT 313 10x3/uL (130-400); RBC 3.05 10x6/uL (4.00-5.40); RDW 19.2 % (11.5-14.5); WBC 44.1 10x3/uL (4.8-10.8)
[2020-03-28 09:49] LABS: CHOL - HDL RATIO 6.5 ratio (2.3-4.1); LDL-HDL RATIO 3.1 ratio (1.5-3.5)
[2020-03-28 10:02] VITALS: BP 145/87
[2020-03-28 10:08] LABS: LYMPHOCYTES 26 % (15-50); MONOCYTES 1 % (2-11); NEUTROPHILS 71 % (40-80); PLATELET ESTIMATE NORMAL; POIKILOCYTOSIS 1+; TARGET CELLS 1+; TEAR DROP CELLS 1+
[2020-03-28 10:09] LABS: ANISOCYTOSIS OCC; POLYCHROMASIA OCC
--- NOTE | 2020-03-28 10:22 | NUR ---
RECEIVED BACK FROM RAILROAD COOK AT THIS TIME. PATIENT HAD CLEAN HEART CATH. VS 151/63, PULSE 112. IV FLUIDS INFUSING ORDERED PER CARDIOLOGY AT THIS TIME (100ML/HR). CALL LIGHT WITHIN REACH. PERIPHERAL PULSES PATENT. NO S/S HEMATOMA FORMATION TO RIGHT GROIN. NO DISTRESS.
--- NOTE | 2020-03-28 12:18 | NUR ---
MEDICATED FOR PAIN AT THIS TIME WITH TORADOL. PATIENT NOW SITTING UP, WAITING ON LUNCH. NO DISTRESS.
--- NOTE | 2020-03-28 16:34 | NUR ---
MEDICATED FOR PAIN AT THIS TIME. NO DISTRESS.
[2020-03-28 17:06] VITALS: BP 140/79
--- NOTE | 2020-03-28 18:39 | HP ---
PATIENT: MADISON MARTINEZ MEDICAL RECORD: [id number] ACCOUNT: [id number] LOCATION:[address] : 72 ADMISSION DATE: 03/27/20 PCP: No PCP HISTORY AND PHYSICAL EXAMINATION REASON FOR ADMISSION: Shortness of breath. HISTORY OF PRESENT ILLNESS: The patient is a 49-year-old female who presents with complaint of 2- to 3-day history of shortness of breath with walking. She stated she was exposed to a young family member who was COVID positive, but she was tested a week ago and was negative. She denied fever. Did have a little GI upset earlier in the week with some nausea, vomiting, and diarrhea that resolved. She notes over the last few days with walking she gets short of breath. No cough. She denies any loss of sense of taste or smell. Says her appetite is excellent. She presented to the ER for this reason, had an O2 sat in the mid-90s. Because she had had a recent PE in late July of this year in the left upper lung, she had had been placed on Eliquis, had been on it for a month, could not afford it, did not refill it. She had been taking aspirin since that time. She denied hemoptysis. The ER doctor performed a CTA that showed resolution of the PE; however, she had diffuse bilateral pneumonia pattern. A blood gas was performed that surprisingly showed a pO2 of 58 on room air. She now has been placed on supplemental O2 and is a COVID rule out. She also has elevated BNP of 15,274; troponin of 0.25. She denies exertional chest pain. PAST MEDICAL HISTORY: Sickle cell disease without being hospitalized in the past for this, pulmonary embolus, remote smoker, history of paroxysmal atrial fibrillation in 08/2019 during her PE. At that time, she had abnormal echo showing EF of 50%, mild pulmonary hypertension, cardiomyopathy. PAST SURGICAL HISTORY: She has had tonsillectomy and section times 1. IMMUNIZATION HISTORY: She has had pneumococcal vaccine in 1976, influenza vaccine 03/17/2020. FAMILY HISTORY: Positive for hypertension. SOCIAL HISTORY: Remote smoker. Uses marijuana periodically. ALLERGIES: None mentioned. REVIEW OF SYSTEMS: GENERAL: Denies recent fevers. Some mild fatigue. HEENT: No recent visual change, sinus congestion, sore throat, or loss of sense of taste or smell. RESPIRATORY: She has had mild shortness of breath on exertion, but no cough, congestion, or chest pain. GASTROINTESTINAL: Nausea and vomiting that resolved. GENITOURINARY: No dysuria. GYNECOLOGIC: No vaginal bleeding. ENDOCRINE: Denies polyuria, polydipsia, heat or cold intolerance. NEUROLOGIC: No history of stroke, TIA, or vascular headaches. PHYSICAL EXAMINATION: VITAL SIGNS: Temperature 98.1, heart rate 95 and regular, respirations are 18, HISTORY AND PHYSICAL [id number] MADISON MARTINEZ blood pressure 107/56, O2 sat 99% on 2 L. HEENT: Normocephalic. Eyes are clear and nonicteric. Oropharynx is unremarkable. NECK: No bruits or masses. CHEST: Fine crackles in the bases. No wheezes. HEART: Regular rate without murmur or gallop. ABDOMEN: Soft, obese, nontender. No organomegaly. EXTREMITIES: A 1+ bipedal and pretibial edema of the knees bilaterally. No cyanosis is noted. NEUROLOGICAL: Grossly intact. Gait was not tested. INTEGUMENT: No petechiae noted. No evidence of cyanosis. LABORATORY DATA: ABG shows a pH 7.4, pO2 of 58, pCO2 of 20, was on room air. BUN and creatinine are 24 and 1.6, glucose is 118, total bili is 3.59. Troponin is 0.25. ProBNP is 15,274. Chest x-ray, CT scan as above. COVID is currently pending. ASSESSMENT: 1. Recent COVID exposure, no exertional dyspnea and hypoxemia. 2. Sickle cell disease. 3. Elevated troponin and proBNP, etiology unknown. 4. History of PAF with remote PE, history of cardiomyopathy. PLAN: The patient is being admitted for COVID rule out. The ER physician has already ordered remdesivir and IV Decadron pending the COVID result. We will hold remdesivir at this time. Pulmonary and cardiology consult. Discussed potential diagnoses and workup and treatment with the patient and her significant other. NTS:[id number] Voice Confirmation ID: [id number] DOCUMENT ID: [id number] MARIA T YOUNG MD at 1832 CC: [id number] DICTATION DATE: 03/27/201652 GEOMORPHOLOGIST: 03/27/201945 ADM IN [facility] [address] [facility] [place] [address]
[2020-03-28 20:00] VITALS: BP 130/76
--- NOTE | 2020-03-28 20:15 | NUR ---
INITIAL ROUNDS COMPLETED AT 1915 HRS. NO DISTRESS NOTED. ASSESMETN COMPLETED AT 1954 HRS. VSS. SR PER CM HR 99. ALERT AND ORIENTED TO PERSON, PLACE AND TIME. HUA. LUNGS DIMINISHED IN BASES BILAT. R GROIN CLEAN,DRY AND INTACT WITHOUT SWELLING, BRUISING OR BLEEDING. IV TO RAC SL. PALPABLE PERIPHERAL PULSES. SR UP X2, CALL LIGHT WITHIN REACH.
--- NOTE | 2020-03-28 21:53 | NUR ---
PM MED GIVEN TORADOL 30MG IVP GIVEN FOR C/O OVERALL PAIN AND STIFFNESS. PT CURRENTLY RESTING WITH EYES CLOSED. RESP EVEN AND REGULAR. SR UP X2,CALL LIGHT WITHIN REACH.
--- NOTE | 2020-03-28 23:44 | NUR ---
MORPHINE 2MG SIVP GIVEN FOR C/O OVERALL PAIN. LEVAQUIN 750MG IVPB INITIATED. SR UP X2, CALL LIGHT WITHIN REACH.
[2020-03-29 00:02] VITALS: BP 138/69
--- NOTE | 2020-03-29 02:11 | NUR ---
PT RESTING WITH EYES CLOSED. RESP EVEN AND REGULAR. SR UP X2, CALL LIGHT WITHIN REACH.
--- NOTE | 2020-03-29 02:25 | NUR ---
PT HAS C/O PAIN ALL OVER 03/26. REFUSED OFFER FOR TORADOL.MORPHINE 2MG SIVP GIVEN VIA RAC. CALL LIGHT WITHIN REACH.
[2020-03-29 04:20] VITALS: BP 141/78
--- NOTE | 2020-03-29 04:39 | NUR ---
VSS. NO CHANGE TO R GROIN NOTED. SR UP X2,CALL LIGHT WITHIN REACH.
[2020-03-29 06:23] LABS: BASOPHILS 0.2 % (0-2); HEMATOCRIT 26.7 % (36.0-48.0); HEMOGLOBIN 9.2 g/dL (12-16); MCH 30.7 pg (26.0-34.0); MCHC 34.5 g/dL (31.0-37.0); MEAN PLATELET VOLUME 9.5 fL (7.4-10.4); PLATELET COUNT 299 10x3/uL (130-400); RDW 19.8 % (11.5-14.5); WBC 36.9 10x3/uL (4.8-10.8)
--- NOTE | 2020-03-29 06:27 | NUR ---
VSS THROUGHOUT NIGHT. NO CHANGES TO R GROIN NOTED. PT CONTINUES TO HAVE C/O SEVERE PAIN ALL OVER EVEN WITH MORPHINE AND TORADOL ADMINISTRATION. CALL LIGHT WITHIN REACH.
[2020-03-29 06:40] LABS: ANION GAP 13.5 mmol/L (8-16); CALCIUM 8.6 mg/dL (8.5-10.1); CARBON DIOXIDE 22.4 mmol/L (21.0-32.0); CREATININE - SERUM 1.3 mg/dL (0.6-1.3); POTASSIUM - SERUM 4.9 mmol/L (3.5-5.1)
--- NOTE | 2020-03-29 07:00 | NUR ---
RECEIVED REPORT. ASSUMED CARE OF PATIENT. PATIENT RESTING WITH EYES CLOSED, EASILY AROUSED. WHITE BOARD UPDATED, BEDSIDE SHIFT REPORT COMPLETE. DENIES NEEDS AT THIS TIME. PATIENT STATES THE PAIN MED SHE RECEIVED THIS AM DID NOT HELP WITH THE PAIN. TORADOL WAS NOT EFFECTIVE FOR PATIENT PAIN. INFORMED PATIENT SHE STILL HAS MORPHINE WE CAN ADMINISTER FOR PAIN. CALL LIGHT WITHIN REACH.
--- NOTE | 2020-03-29 07:34 | NUR ---
MEDICATED FOR PAIN AT THIS TIME. INCENTIVE SPIROMETER PROVIDED AND EDUCATION RENDERED.
[2020-03-29 08:46] VITALS: BP 152/90
--- NOTE | 2020-03-29 11:00 | NUR ---
ASSISTED TO AND FROM RESTROOM. NO DISTRESS. CALL LIGHT WITHIN REACH.
[2020-03-29 11:40] VITALS: BP 122/69
--- NOTE | 2020-03-29 12:07 | NUR ---
MEDICATED FOR PAIN AT THIS TIME. NO DISTRESS.
--- NOTE | 2020-03-29 14:30 | NUR ---
PATIENT OOB, ASSISTED TO SHOWER. LINEN CHANGE PROVIDED. ASSISTED BACK TO BED, TELEMETRY APPLIED. NO DISTRESS.
[2020-03-29 15:00] VITALS: BP 138/70
--- NOTE | 2020-03-29 16:10 | NUR ---
MEDICATED FOR PAIN AT THIS TIME. NO DISTRESS.
--- NOTE | 2020-03-29 17:47 | NUR ---
MEDICATED FOR PAIN AT THIS TIME. NO DISTRESS. ASSISTED TO AND FROM RESTROOM. CALL LIGHT WITHIN REACH.
--- NOTE | 2020-03-29 19:30 | NUR ---
RECEIVED REPORT, WILL ASSUME CARE OF PT, IV-RAC-SL, [id number], 4L-NC, DENIES ANY NEEDS AT THIS TIME, BED IS LOW, SRX2, CALL LIGHT IN REACH, WILL CONTINUE PLAN OF CARE
[2020-03-29 20:00] VITALS: BP 118/63
[2020-03-30 04:00] VITALS: BP 122/67
[2020-03-30 06:13] LABS: ANION GAP 13.1 mmol/L (8-16); CALCIUM 8.7 mg/dL (8.5-10.1); CARBON DIOXIDE 24.4 mmol/L (21.0-32.0); CREATININE - SERUM 1.2 mg/dL (0.6-1.3)
[2020-03-30 06:17] LABS: POTASSIUM - SERUM 5.5 mmol/L (3.5-5.1)
[2020-03-30 06:43] LABS: HEMATOCRIT 26.9 % (36.0-48.0); HEMOGLOBIN 9.3 g/dL (12-16); MCH 30.9 pg (26.0-34.0); MCHC 34.6 g/dL (31.0-37.0); MCV 89.4 fL (80.0-100.0); MEAN PLATELET VOLUME 10.5 fL (7.4-10.4); PLATELET COUNT 309 10x3/uL (130-400); RBC 3.01 10x6/uL (4.00-5.40); RDW 19.6 % (11.5-14.5); WBC 21.4 10x3/uL (4.8-10.8)
[2020-03-30 10:15] VITALS: BP 126/67
--- NOTE | 2020-03-30 12:41 | NUR ---
PT IS TACHTPNEIC AND COMPLAINING OF PAIN ON RIGHT SIDE
[2020-03-30 13:05] VITALS: BP 125/40
[2020-03-30 13:34] LABS: EOSINOPHILS 1 % (0-7); LYMPHOCYTES 15 % (15-50); MONOCYTES 11 % (2-11); NEUTROPHILS 70 % (40-80); PLATELET ESTIMATE NORMAL
--- NOTE | 2020-03-30 19:30 | NUR ---
RECEIVED REPORT, WILL ASSUME CARE OF PT, ASSISTED PT TO RESTROOM AND BACK TO BED, [id number], 02-4L, BIPAP IN ROOM, DENIES ANY NEEDS AT THIS TIME, BED IS LOW, SRX2, CALL LIGHT IN REACH, WILL CONTINUE PLAN OF CARE
[2020-03-30 20:00] VITALS: BP 105/59
[2020-03-31 04:00] VITALS: BP 110/57
[2020-03-31 06:14] LABS: ANION GAP 11.8 mmol/L (8-16); CALCIUM 8.7 mg/dL (8.5-10.1); CREATININE - SERUM 1.3 mg/dL (0.6-1.3); POTASSIUM - SERUM 4.8 mmol/L (3.5-5.1)
[2020-03-31 06:27] LABS: HEMATOCRIT 29.6 % (36.0-48.0); MCH 29.8 pg (26.0-34.0); MCHC 33.8 g/dL (31.0-37.0); MCV 88.1 fL (80.0-100.0); MEAN PLATELET VOLUME 9.5 fL (7.4-10.4); PLATELET COUNT 274 10x3/uL (130-400); RBC 3.36 10x6/uL (4.00-5.40); RDW 19.3 % (11.5-14.5); WBC 17.5 10x3/uL (4.8-10.8)
[2020-03-31 07:00] VITALS: BP 117/63
--- NOTE | 2020-03-31 07:00 | NUR ---
RECEIVED REPORT. ASSUMED CARE OF PATIENT. CALL LIGHT WITHIN REACH. PATIENT RESTING IN BED WITH O2 AT 4L/NC, OFF BIPAP AT THIS TIME. PATIENT COMPLAINS OF SLIGHT PAIN. BEDSIDE SHIFT REPORT COMPLETE, WHITE BOARD UPDATED. NO DISTRESS.
--- NOTE | 2020-03-31 09:08 | NUR ---
PT OOB TO SHOWER AT THIS TIME. NO DISTRESS. STUDENT NURSES AT BEDSIDE FOR LINEN CHANGE.
[2020-03-31 11:00] VITALS: BP 116/68
[2020-03-31 11:32] LABS: ANISOCYTOSIS 1+; LYMPHOCYTES 11 % (15-50); MONOCYTES 15 % (2-11); NEUTROPHILS 71 % (40-80); PLATELET ESTIMATE NORMAL; POLYCHROMASIA OCC; ROULEAUX OCC
--- NOTE | 2020-03-31 13:13 | NUR ---
MEDICATED FOR PAIN AT THIS TIME.
--- NOTE | 2020-03-31 15:54 | MORECARE ---
CASE MANAGEMENT DISCHARGE SUMMARY PATIENT: MADISON MARTINEZ UNIT: [id number] ADM DATE: 03/27/20 AGE: 49 : 72 SEX: F ROOM/BED: D.2127 AUTHOR: HIPOLITO AGUSTIN PHYSICIAN: REFERRING PHYSICIAN: MARIA T YOUNG MD DATE OF SERVICE: 03/31/20 Discharge Plan Patient Name: MADISON MARTINEZ [facility] [facility] 1970 Planned Disposition: Home Anticipated Discharge Date: Discharge Date: Expected LOS: Initial Reviewer: [email or web address] Initial Review Date: 03/27/2020 Generated: 03/31/20 4:54 pm DCPIA - Discharge Planning Initial Assessment Updated by [email or web address]: Lili Ruffin on 03/31/20 3:53 pm * Is the patient Alert and Oriented? Yes * How many steps to enter\exit or inside your home? 0/0 * PCP none * Pharmacy [facility] on [facility] * Preadmission Environment Home with Family * ADLs Independent * Equipment None * List name and contact numbers for known caregivers / representatives who currently or will assist patient after discharge: Daughter Alisa [phone] * Verbal permission to speak to the caregivers and representatives has been obtained from the patient. Yes * Community resources currently utilized None * Additional services required to return to the preadmission environment? Yes * Can the patient safely return to the preadmission environment? Yes * Has this patient been hospitalized within the prior 30 days at any hospital? No Patient Name: MADISON MARTINEZ Page [id number] at 1554 All edits/amendments must be made on the electronic document DICTATION DATE: 03/31/20 1554 BOTTOM PAINTER: CHAD 03/31/20 1554 RPT#: [id number] DC DATE: STATUS: ADM IN [facility] [address] [place] [address] END OF REPORT
--- NOTE | 2020-03-31 16:02 | MORECARE ---
CASE MANAGEMENT DISCHARGE SUMMARY PATIENT: MADISON MARTINEZ UNIT: [id number] ADM DATE: 03/27/20 AGE: 49 : 72 SEX: F ROOM/BED: D.4902 AUTHOR: HIPOLITO AGUSTIN PHYSICIAN: REFERRING PHYSICIAN: MARIA T YOUNG MD DATE OF SERVICE: 03/31/20 Discharge Plan Patient Name: MADISON MARTINEZ Facility: [facility]:[place] : 1970 Planned Disposition: Home Anticipated Discharge Date: Discharge Date: Expected LOS: Initial Reviewer: [email or web address] Initial Review Date: 03/27/2020 Generated: 03/31/20 5:01 pm Comments DCP- Discharge Planning Updated by [email or web address]: Lili Ruffin on 03/31/20 2:[address] Patient Name: MADISON MARTINEZ Admission Status: ER Accout number: [id number] Admission Date: 03-27-2020 : 1970 Admission Diagnosis:SHORTNESS OF BREATH Attending: MARIA T YOUNG Current LOS: 4 Anticipated DC Date: Planned Disposition: Home Primary Insurance: UNINSURED DISCOUNT PLAN Discharge Planning Comments: CM met with patient to complete initial dc planning assessment. CM educated patient on the CM role and verbal consent given by patient to complete assessment. CM verified patient's address, phone number, and emergency contact phone numbers. Patient lives at home with a significant other. At discharge patient plans to return home and feels this is a safe discharge. The emergency parts person is Alisa her daughter at [phone]. CM discussed availability of home health, rehab services, and medical equipment. The patient has been on continuous oxygen since admission. CM anticipates the need for home and portable oxygen. CM provided pace for oxygen at 172.66 per month. Patient states she can afford this and is in agreement for home oxygen if needed. Patient denies other known discharge needs at this time. SABRINA signed for [facility], declination signed for HH or DME services. Transportation provider at discharge will be her daughter. CM will continue to follow and will assist as needed with dc plans/needs. Explosives Mixer Operator: Lili Ruffin DCPIA - Discharge Planning Initial Assessment Updated by [email or web address]: Lili Ruffin on 03/31/20 3:53 pm * Is the patient Alert and Oriented? Yes * How many steps to enter\exit or inside your home? 0/0 * PCP none * Pharmacy [facility] on [facility] * Preadmission Environment Home with Family * ADLs Independent * Equipment None * List name and contact numbers for known caregivers / representatives who currently or will assist patient after discharge: Daughter Alisa [phone] * Verbal permission to speak to the caregivers and representatives has been obtained from the patient. Yes * Community resources currently utilized None * Additional services required to return to the preadmission environment? Yes * Can the patient safely return to the preadmission environment? Yes * Has this patient been hospitalized within the prior 30 days at any hospital? No Coverage Notice Reviewer: [id number] Sunitha Ruffin Notice Issued Date-Time: 03/31/2020 15:30 Notice Type: Patient Choice Letter Notice Delivered To: Patient Relationship to Patient: Supervisor Stave Finishing Name: Delivery Method: HAND - Hand Delivered Lavinia Days: Prior Verbal Notification: Recipient Understood Notice: Yes Recipient Signature: Yes Med Rec Note Co-signed by Attending: Coverage Notice Comment: SABRINA for [facility]. Declination signed for DME, or HH Last DP export: 03/31/20 2:54 p Patient Name: MADISON MARTINEZ Page [phone] at 1602 All edits/amendments must be made on the electronic document DICTATION DATE: 03/31/20 160 DAIRY HUSBANDRY WORKER: CHAD 03/31/20 160 RPT#: [id number] DC DATE: STATUS: ADM IN [facility] [address] [place] [address] END OF REPORT
[2020-03-31 17:12] VITALS: BP 116/75
--- NOTE | 2020-03-31 17:15 | NUR ---
MEDICATED FOR PAIN AT THIS TIME. NO DISTRESS.
[2020-03-31 20:00] VITALS: BP 120/68
--- NOTE | 2020-03-31 21:47 | NUR ---
UP WITH ASSIST TO BR.
[2020-04-01 04:00] VITALS: BP 106/59
[2020-04-01 07:04] LABS: CARBON DIOXIDE 24.6 mmol/L (21.0-32.0); CREATININE - SERUM 1.5 mg/dL (0.6-1.3); POTASSIUM - SERUM 4.6 mmol/L (3.5-5.1)
[2020-04-01 07:26] LABS: HEMATOCRIT 26.8 % (36.0-48.0); HEMOGLOBIN 9.4 g/dL (12-16); MCH 30.2 pg (26.0-34.0); MCHC 35.1 g/dL (31.0-37.0); MCV 86.2 fL (80.0-100.0); MEAN PLATELET VOLUME 9.4 fL (7.4-10.4); PLATELET COUNT 340 10x3/uL (130-400); RBC 3.11 10x6/uL (4.00-5.40); WBC 19.8 10x3/uL (4.8-10.8)
[2020-04-01 08:00] VITALS: BP 109/58
--- NOTE | 2020-04-01 09:57 | NUR ---
Rehab Prescreening Consult recieved and the chart has been reviewed. She is uninsured and has no payor source for the ARU. Kay Smith RN Clinical Liaison, Rehab
[2020-04-01 12:15] LABS: EOSINOPHILS 4 % (0-7); LYMPHOCYTES 2 % (15-50); MONOCYTES 9 % (2-11); NEUTROPHILS 83 % (40-80); PLATELET ESTIMATE NORMAL
[2020-04-01 12:16] LABS: ANISOCYTOSIS 1+; SCHISTOCYTES OCC; TARGET CELLS 1+
[2020-04-01 20:00] VITALS: BP 91/49
[2020-04-02 01:55] VITALS: BP 90/44
[2020-04-02 05:58] VITALS: BP 97/46
[2020-04-02 07:57] VITALS: BP 84/46
[2020-04-02 08:40] LABS: ANION GAP 14.2 mmol/L (8-16); CALCIUM 9.2 mg/dL (8.5-10.1); CARBON DIOXIDE 25.4 mmol/L (21.0-32.0); POTASSIUM - SERUM 4.6 mmol/L (3.5-5.1)
[2020-04-02 08:41] LABS: CREATININE - SERUM 3.7 mg/dL (0.6-1.3)
[2020-04-02 11:19] VITALS: BP 92/43
[2020-04-02 13:40] VITALS: BMI 41.7
[2020-04-02 15:00] VITALS: BP 92/46
--- NOTE | 2020-04-02 16:37 | NUR ---
OT NOTE: PT COMPLETED EOB SITTING WITH UB HYGIENE TASKS WITH SETUP. PT REQUIRED MOD A FOR MIRA SOCKS. PT COMPLETED SIT TO STAND WITH CGA/MIN A. PT COMPLETED ADL MOB WITH CGA. PT IS COOPERATIVE AND MOTIVATED. [phone] ELVER GARCIA COTA
[2020-04-02 17:58] VITALS: BP 85/43
[2020-04-03] VITALS (25 sets, daily range): BP systolic 79–134; BP diastolic 40–72; Ht 157.5 cm; Wt 107.7 kg
[2020-04-03 06:35] LABS: ANION GAP 22.2 mmol/L (8-16); CALCIUM 9.3 mg/dL (8.5-10.1); CARBON DIOXIDE 20.7 mmol/L (21.0-32.0); POTASSIUM - SERUM 4.9 mmol/L (3.5-5.1)
[2020-04-03 06:37] LABS: CREATININE - SERUM 6.2 mg/dL (0.6-1.3)
[2020-04-03 08:30] LABS: MAGNESIUM - SERUM 3.2 mg/dL (1.8-2.4)
[2020-04-03 08:38] LABS: PHOSPHOROUS 11.3 mg/dL (2.5-4.9)
--- NOTE | 2020-04-03 09:55 | NUR ---
RECEIVED VERBAL ORDERS TO PLACE COLON FOR RETENTION PER . 16FR COLON PLACED. NO OUTPUT RECORDED. URINARY MEATUS EASILY VISUALIZED AND CATHETER PASSED WITH EASE. BULB INFLATED AND SLIGHTLY PULLED BACK. STAT LOCK IN PLACE. 500ML NS BOLUS INFUSED PER VERBAL ORDERS NOW INFUSING NS @75ML/HR VIA L.AC PIV. BLADDER SCAN PERFORMED AND SHOWING 200ML RETAINING. NOTIFIED MANDI DEWEYN WITH NEPHROLOGY. WILL CTM OUTPUT. NO URINE RECORDED IN COLLECTION BAG. RECEIVED VERBAL ORDERS PER MANDI GA TO WAIT TWO MORE HOURS BEFORE DOING ANYTHING. KIDNEY AND BLADDER ULTRASOUND ORDERED.
--- NOTE | 2020-04-03 14:31 | NUR ---
2L OF NS INFUSING COMPLETE. SODIUM BICARB NOW INFUSING @150ML/HR. NEW 20GA PLACED TO THE RIGHT FOREARM. COLON IN PLACE. MINIMUAL URINE OUTPUT RECORDED. LESS THAN 100ML. WILL CTM.
--- NOTE | 2020-04-03 14:45 | NUR ---
BLADDER SCAN PERFORMED WITH APPROX 300ML URINE RETAINING. COLON ONLY DRAINING APPROX 100ML. WILL CTM.
--- NOTE | 2020-04-03 15:21 | NUR ---
SPOKE WITH MANDI LOBO ABOUT PATIENTS STATUS. SHE STATED TO LEAVE PT ON SODIUM BICARB @150ML/HR. WILL DO SO. WILL CTM. PT VSS AND WNL.
--- NOTE | 2020-04-03 17:04 | NUR ---
SPOKE WITH AND WHO BOTH AGREED TO TRANSFER PT TO THE ICU. NUTRITION ASSOCIATE NOTIFIED.
--- NOTE | 2020-04-03 17:34 | NUR ---
RECEIVED VERBAL ORDERS PER FOR LEVOPHED TO MAINTAIN SYSTOLIC GREATER THAN 100. ORDER PLACED. WILL TRANSFER PT ONCE ROOM AVAILABLE.
--- NOTE | 2020-04-03 18:38 | NUR ---
PT TRANSFERED TO [id number]
--- NOTE | 2020-04-03 18:54 | NUR ---
REC'D TO ICU. ALL MONITORING EQUIPMENT ATTACHED AND ALARMS SET. BP 79/55 MAP 64. LEVOPHED GTT STARTED AND TITRATING ORDERED.
--- NOTE | 2020-04-03 19:50 | NUR ---
NEW PIV TO LEFT FOREARM 20G
--- NOTE | 2020-04-03 20:35 | NUR ---
SPOKE WITH ARNEL IN LAB, TOLD HIM LAB WAS STAT NOT ROUTINE
[2020-04-03 20:56] LABS: HEMATOCRIT 24.4 % (36.0-48.0); HEMOGLOBIN 8.7 g/dL (12-16); MCH 29.4 pg (26.0-34.0); MCHC 35.7 g/dL (31.0-37.0); MCV 82.4 fL (80.0-100.0); MEAN PLATELET VOLUME 8.9 fL (7.4-10.4); RBC 2.96 10x6/uL (4.00-5.40); RDW 21.4 % (11.5-14.5); WBC 16.8 10x3/uL (4.8-10.8)
[2020-04-03 20:57] LABS: PLATELET COUNT 415 10x3/uL (130-400)
[2020-04-03 21:07] LABS: ANION GAP 19.3 mmol/L (8-16); CALCIUM 8.2 mg/dL (8.5-10.1); CARBON DIOXIDE 17.9 mmol/L (21.0-32.0); CREATININE - SERUM 6.6 mg/dL (0.6-1.3); POTASSIUM - SERUM 5.2 mmol/L (3.5-5.1)
[2020-04-03 21:23] LABS: ANISOCYTOSIS 1+; EOSINOPHILS 1 % (0-7); LYMPHOCYTES 7 % (15-50); MONOCYTES 18 % (2-11); NEUTROPHILS 60 % (40-80)
[2020-04-03 21:24] LABS: POIKILOCYTOSIS 1+; TARGET CELLS 2+
[2020-04-03 22:11] LABS: PLATELET ESTIMATE NORMAL
--- NOTE | 2020-04-03 22:22 | NUR ---
ATTEMPTED TO GET URINE FOR LAB BUT NO URINE IN TUBING. RELEASED CLAMP AND WILL CLAMP AGAIN
[2020-04-03 23:42] LABS: BACTERIA MODERATE HPF (NONE SEEN); BILIRUBIN 1+ (NEGATIVE); KETONE NEGATIVE (NEGATIVE); NITRITE NEGATIVE (NEGATIVE); UROBILINOGEN NORMAL mg/dL (< 2); WHITE CELLS - URINE 25-50 HPF (0-4)
[2020-04-03 23:43] LABS: GRANULAR CAST 0-5 LPF (NONE SEEN)
[2020-04-04] VITALS (81 sets, daily range): BP systolic 91–144; BP diastolic 46–98
[2020-04-04 04:09] LABS: HEMATOCRIT 24.1 % (36.0-48.0); HEMOGLOBIN 8.5 g/dL (12-16); MCH 28.9 pg (26.0-34.0); MCHC 35.3 g/dL (31.0-37.0); MEAN PLATELET VOLUME 9.1 fL (7.4-10.4); PLATELET COUNT 490 10x3/uL (130-400); RBC 2.94 10x6/uL (4.00-5.40); RDW 21.4 % (11.5-14.5); WBC 16.7 10x3/uL (4.8-10.8)
[2020-04-04 04:32] LABS: ALBUMIN 2.2 g/dL (3.4-5.0); ANION GAP 18.8 mmol/L (8-16); BILIRUBIN - DIRECT 2.08 mg/dL (0.00-0.30); BILIRUBIN - INDIRECT 1.08 mg/dL (0.00-1.00); BILIRUBIN - TOTAL 3.16 mg/dL (0.2-1.3); CALCIUM 8.3 mg/dL (8.5-10.1); CARBON DIOXIDE 21.7 mmol/L (21.0-32.0); CREATININE - SERUM 6.2 mg/dL (0.6-1.3); MAGNESIUM - SERUM 2.7 mg/dL (1.8-2.4); POTASSIUM - SERUM 4.5 mmol/L (3.5-5.1); PROTEIN - SERUM 7.2 g/dL (6.4-8.2)
[2020-04-04 04:38] LABS: PHOSPHOROUS 9.6 mg/dL (2.5-4.9)
[2020-04-04 04:43] LABS: EOSINOPHILS 2 % (0-7); LYMPHOCYTES 11 % (15-50); MONOCYTES 5 % (2-11); NEUTROPHILS 66 % (40-80); PLATELET ESTIMATE INCREASED
[2020-04-04 17:45] LABS: ANION GAP 14.9 mmol/L (8-16); CALCIUM 8.2 mg/dL (8.5-10.1); CARBON DIOXIDE 23.3 mmol/L (21.0-32.0); POTASSIUM - SERUM 4.2 mmol/L (3.5-5.1)
--- NOTE | 2020-04-04 19:00 | NUR ---
RECIVED REPORT AT BEDSIDE. PT IS ALERT AND AWAKE, VSS SITTING IN BED. ISAIAH PATRICIAOTOR OBSERVED TO GRAVITY WITH YELLOW URINE. HER BREATHING IS SLIGHTLY LABORED AT 24 BREATHS PER MIN ON 4L OXYGEN. SHE ALSO BECOMES SOB WITH ANY ACTIVITY. NO C/O VOICED AT THIS TIME. PT IS ORIENTED TO USE OF CALL LIGHT. FULL ASSESSMENT WILL PERFORM AND DOC IN FLOWSHEET. BED IS LOW,SIDE RIASLX2,CALL LIGHT WITHIN REACH. WILL CONINTUE TO MONITOR
--- NOTE | 2020-04-04 20:56 | NUR ---
ASSISTED PT TO BEDSIDE CAMMODE STAND BY ASSIST. HE HAD LARGE 400ML OF LIQUID DARK BROWN DIARRHEA, HELPED CLEAN HER AND THEN ASSISTED BACK TO BED IN COMFORTABLE POSITION. NO NEEDS OR C/O VOICED AT THIS TIME. BED IS LOW,SIDE RAISLX2,CALL LIGHT WITHIN REACH. WILL CONITUE TO MONITOR
[2020-04-05] VITALS (24 sets, daily range): BP systolic 119–175; BP diastolic 59–97
--- NOTE | 2020-04-05 00:38 | NUR ---
PT USED CALL LIGHT TO USE BEDSIDE CAMMODE AGAIN. SHE HAD ANOTHER LARGE LIQUID BM. SENT C.DIFF SAMPLE INTO LAB ORDERED, WILL WAIT FOR RESULTS. BACK TO BED SAFELY. VSS. NO NEEDS OR C/O VOICED. BED IS LOW,SIDE RIASLX2,CALL LIGHT WITHIN REACH. WILL CONINTUE TO MONITOR
--- NOTE | 2020-04-05 04:46 | NUR ---
PT RECIEVED FULL BED BATH WITH CHG CLEANSER AND LINEN CHANGE. COLON CATHETOR CARE WAS PROVIDED. VSS. PT PROVIDED WITH FRESH ICE WATER. NO NEEDS VOICED. BED IS LOW,SIDE RAISLX2,CALL LIGHT WITHIN REACH. WILL CONINTUE TO MONITOR
[2020-04-05 07:20] LABS: HEMATOCRIT 22.4 % (36.0-48.0); HEMOGLOBIN 7.7 g/dL (12-16); MCH 28.1 pg (26.0-34.0); MCHC 34.4 g/dL (31.0-37.0); MCV 81.8 fL (80.0-100.0); MEAN PLATELET VOLUME 8.8 fL (7.4-10.4); PLATELET COUNT 491 10x3/uL (130-400); RBC 2.74 10x6/uL (4.00-5.40); RDW 22.2 % (11.5-14.5); WBC 25.1 10x3/uL (4.8-10.8)
[2020-04-05 07:22] LABS: ANION GAP 16.5 mmol/L (8-16); CALCIUM 8.2 mg/dL (8.5-10.1); CARBON DIOXIDE 22.4 mmol/L (21.0-32.0); CHOL - HDL RATIO 11.2 ratio (2.3-4.1); CREATININE - SERUM 3.2 mg/dL (0.6-1.3); LDL-HDL RATIO 5.9 ratio (1.5-3.5); MAGNESIUM - SERUM 2.7 mg/dL (1.8-2.4); PHOSPHOROUS 6.5 mg/dL (2.5-4.9); POTASSIUM - SERUM 3.9 mmol/L (3.5-5.1); VANCOMYCIN - RANDOM 9.8 ug/mL (10.0-20.0)
[2020-04-05 07:49] LABS: EOSINOPHILS 1 % (0-7); LYMPHOCYTES 11 % (15-50); MONOCYTES 1 % (2-11); NEUTROPHILS 87 % (40-80); PLATELET ESTIMATE INCREASED
--- NOTE | 2020-04-05 15:33 | NUR ---
LYING IN BED RESTING AT THIS TIME. VSS. NO ACUTE DISTRESS NOTED. RESPIRATIONS STEADY AND UNLABORED. CALL LIGHT IN REACH. PT AWAKENS EASILY WHEN SPOKEN TO. WILL CONTINUE PLAN OF CARE.
--- NOTE | 2020-04-05 18:15 | NUR ---
ASSISTED PT UP IN CHAIR BESIDE BED AT THIS TIME. VSS. NO ACUTE DISTRESS NOTED. WILL CONTINUE PLAN OF CARE.
[2020-04-06 03:00] VITALS: BP 156/85
[2020-04-06 04:59] LABS: ALBUMIN 2.2 g/dL (3.4-5.0); ANION GAP 13.9 mmol/L (8-16); BILIRUBIN - TOTAL 1.28 mg/dL (0.2-1.3); CALCIUM 8.8 mg/dL (8.5-10.1); CARBON DIOXIDE 26.9 mmol/L (21.0-32.0); POTASSIUM - SERUM 3.8 mmol/L (3.5-5.1); PROTEIN - SERUM 6.6 g/dL (6.4-8.2); VANCOMYCIN - RANDOM 12.7 ug/mL (10.0-20.0)
[2020-04-06 05:05] LABS: CREATININE - SERUM 1.7 mg/dL (0.6-1.3)
[2020-04-06 05:38] LABS: HEMATOCRIT 23.9 % (36.0-48.0); HEMOGLOBIN 7.9 g/dL (12-16); MCH 27.5 pg (26.0-34.0); MCHC 33.1 g/dL (31.0-37.0); MCV 83.3 fL (80.0-100.0); MEAN PLATELET VOLUME 8.8 fL (7.4-10.4); PLATELET COUNT 584 10x3/uL (130-400); RBC 2.87 10x6/uL (4.00-5.40); RDW 22.5 % (11.5-14.5); WBC 27.5 10x3/uL (4.8-10.8)
[2020-04-06 07:00] VITALS: BP 147/83
--- NOTE | 2020-04-06 07:30 | NUR ---
RECEIVED BEDSIDE REPORT. PT LAYING IN BED A&O X4, C/O PAIN 03/26, PROVIDED PAIN MEDS PER ORDER. PIV IN RIGHT FOREARM, PATENT AND INFUSING NS @ 10, NO REDNESS OR SWELLING. PIV IN LEFT FOREARM, S/L, PATENT & FLUSHES WELL, NO REDNESS OR SWELLING. O2 VIA NC @ 2L, SAT 95%. COLON IN PLACE, DRAINING TO GRAVITY, YELLOW-ORANGE URINE, STATLOCK IN PLACE. PT ON CONTINUOUS VS MONITORS, IN PLACE & VS WNL. PT REFUSED BATH THIS MORNING AND STATED SHE WISHES TO WAIT UNTIL SHE IS PLACED IN ROOM. EDUCATED PT ON CL AND NEEDS, VERBALIZED UNDERSTANDING. BED LOW, RAILS X2. CL IN REACH. WILL CONTINUE TO MONITOR.
--- NOTE | 2020-04-06 08:00 | NUR ---
ASSISTED PT TO BSC, LIQUID BROWN STOOL, LARGE AMOUNT. ASSISTED BACK TO BED, PT TOLERATED WELL. CL IN REACH, WILL CONTINUE TO MONITOR.
--- NOTE | 2020-04-06 08:38 | NUR ---
PT C/O PAIN 03/26, PROVIDED PAIN MEDS PER ORDER. CL IN REACH, WILL CONTINUE TO MONITOR.
--- NOTE | 2020-04-06 10:25 | NUR ---
PT ASKED ME TO BRING MONEY AND EBT TO CARD TO DAUGHTER AT ER ENTRANCE. MEET DAUGHTER AND GAVE MONEY AND CARD. WILL CONTINUE TO MONITOR.
[2020-04-06 11:00] VITALS: BP 162/91
--- NOTE | 2020-04-06 11:04 | NUR ---
MEET DAUGHTER AT ER ENTRANCE FOR PHONE CARD FOR PT. GAVE PHONE CARD TO PT. WILL CONTINUE TO MONITOR.
--- NOTE | 2020-04-06 11:44 | NUR ---
PROVIDED PT WITH MEAL TRAY, INITIATED ANTIBIOTIC PER ORDERS. PT TOLERATED WELL. BED LOW, CL IN REACH WILL CONTINUE TO MONITOR.
[2020-04-06 12:19] LABS: EOSINOPHILS 1 % (0-7); LYMPHOCYTES 16 % (15-50); MONOCYTES 11 % (2-11); NEUTROPHILS 63 % (40-80); PLATELET ESTIMATE INCREASED
[2020-04-06 12:20] LABS: HYPOCHROMASIA OCC
--- NOTE | 2020-04-06 13:09 | NUR ---
Nutrition follow-up: Pt in ICU 2/2 +Covid Receiving a renal diet PO intake ~50% of meals Labs reviewed Wt: 240# +BM RDN following.
--- NOTE | 2020-04-06 13:43 | NUR ---
PT C/O 03/26 PAIN, PROVIDED PAIN MEDS PER ORDER. BED LOW, CL IN REACH.
[2020-04-06 15:00] VITALS: BP 151/92
--- NOTE | 2020-04-06 19:00 | NUR ---
BEDSIDE REPORT RECEIVED AND CARE OF PT ASSUMED. PT LYING IN SUPINE POSITION WITH EYES CLOSED. IV TO RIGHT FA SALINE LOCKED. O2 IN USE VIA NC AT 3L. WILL MONITOR FOR NEEDS.
[2020-04-06 19:54] VITALS: BP 125/77
--- NOTE | 2020-04-06 20:46 | NUR ---
HS MEDICATIONS GIVEN. WILL CONTINUE TO MONITOR FOR NEEDS.
--- NOTE | 2020-04-06 22:50 | NUR ---
GAVE [facility]CO PO PER REQUEST FOR PAIN, PER PRN ORDER.
[2020-04-06 23:55] VITALS: BP 121/70
[2020-04-07 04:12] VITALS: BP 118/67
[2020-04-07 06:07] LABS: ALBUMIN 2.1 g/dL (3.4-5.0); ANION GAP 8.8 mmol/L (8-16); BILIRUBIN - TOTAL 0.91 mg/dL (0.2-1.3); CALCIUM 8.9 mg/dL (8.5-10.1); CARBON DIOXIDE 29.7 mmol/L (21.0-32.0); CREATININE - SERUM 1.1 mg/dL (0.6-1.3); POTASSIUM - SERUM 3.5 mmol/L (3.5-5.1); VANCOMYCIN - RANDOM 12.3 ug/mL (10.0-20.0)
[2020-04-07 06:59] LABS: BASOPHILS 3.4 % (0-2); EOSINOPHILS 1.1 % (0-7); HEMATOCRIT 23.6 % (36.0-48.0); HEMOGLOBIN 7.8 g/dL (12-16); IMMATURE GRANULOCYTES 6.9 % (0-5); LYMPHOCYTES 20.3 % (15-50); MCH 27.9 pg (26.0-34.0); MCHC 33.1 g/dL (31.0-37.0); MCV 84.3 fL (80.0-100.0); MEAN PLATELET VOLUME 9.3 fL (7.4-10.4); MONOCYTES 4.7 % (2-11); NEUTROPHILS 63.6 % (40-80); PLATELET COUNT 527 10x3/uL (130-400); RDW 24.3 % (11.5-14.5); WBC 21.7 10x3/uL (4.8-10.8)
[2020-04-07 08:55] VITALS: BP 125/84
--- NOTE | 2020-04-07 09:19 | MORECARE ---
CASE MANAGEMENT DISCHARGE SUMMARY PATIENT: MADISON MARTINEZ UNIT: [id number] ADM DATE: 03/27/20 AGE: 49 : 72 SEX: F ROOM/BED: D.2223 AUTHOR: HIPOLITO AGUSTIN PHYSICIAN: REFERRING PHYSICIAN: MARIA T YOUNG MD DATE OF SERVICE: 04/07/20 Discharge Plan Patient Name: MADISON MARTINEZ Facility: [facility]:[place] : 1970 Planned Disposition: Home Anticipated Discharge Date: Discharge Date: Expected LOS: Initial Reviewer: [id number] Initial Review Date: 03/27/2020 Generated: 04/07/20 10:18 am Comments DCP- Discharge Planning Updated by [email or web address]: Lili Ruffin on 03/31/20 2:[address] Patient Name: MADISON MARTINEZ Admission Status: ER Accout number: [id number] Admission Date: 03-27-2020 : 1970 Admission Diagnosis:SHORTNESS OF BREATH Attending: MARIA T YOUNG Current LOS: 4 Anticipated DC Date: Planned Disposition: Home Primary Insurance: UNINSURED DISCOUNT PLAN Discharge Planning Comments: CM met with patient to complete initial dc planning assessment. CM educated patient on the CM role and verbal consent given by patient to complete assessment. CM verified patient's address, phone number, and emergency contact phone numbers. Patient lives at home with a significant other. At discharge patient plans to return home and feels this is a safe discharge. The emergency personal shopper is Alisa her daughter at [phone]. CM discussed availability of home health, rehab services, and medical equipment. The patient has been on continuous oxygen since admission. CM anticipates the need for home and portable oxygen. CM provided pace for oxygen at 172.66 per month. Patient states she can afford this and is in agreement for home oxygen if needed. Patient denies other known discharge needs at this time. SABRINA signed for [facility], declination signed for HH or DME services. Transportation provider at discharge will be her daughter. CM will continue to follow and will assist as needed with dc plans/needs. Sba Business Development Officer: Lili Ruffin DCPIA - Discharge Planning Initial Assessment Updated by [id number]: Lili Ruffin on 03/31/20 3:53 pm * Is the patient Alert and Oriented? Yes * How many steps to enter\exit or inside your home? 0/0 * PCP none * Pharmacy [facility] on [facility] * Preadmission Environment Home with Family * ADLs Independent * Equipment None * List name and contact numbers for known caregivers / representatives who currently or will assist patient after discharge: Daughter Alisa [phone] * Verbal permission to speak to the caregivers and representatives has been obtained from the patient. Yes * Community resources currently utilized None * Additional services required to return to the preadmission environment? Yes * Can the patient safely return to the preadmission environment? Yes * Has this patient been hospitalized within the prior 30 days at any hospital? No Coverage Notice Reviewer: [id number] Sunitha Ruffin Notice Issued Date-Time: 03/31/2020 15:30 Notice Type: Patient Choice Letter Notice Delivered To: Patient Relationship to Patient: Finisher Polisher Name: Delivery Method: HAND - Hand Delivered Lavinia Days: Prior Verbal Notification: Recipient Understood Notice: Yes Recipient Signature: Yes Med Rec Note Co-signed by Attending: Coverage Notice Comment: SABRINA for [facility]. Declination signed for DME, or HH Last DP export: 03/31/20 3:02 p Patient Name: MADISON MARTINEZ Page [id number] at 0919 All edits/amendments must be made on the electronic document DICTATION DATE: 04/07/20917 SUPERVISOR FINE GRADING: CHAD 04/07/20917 RPT#: [id number] DC DATE: STATUS: ADM IN [facility] [address] [place] [address] END OF REPORT
[2020-04-07 12:57] VITALS: BP 136/82
[2020-04-07 18:08] VITALS: BP 134/82
--- NOTE | 2020-04-07 18:12 | NUR ---
I have reviewed this patient and I concur with the Shift Assessment completed by the Licensed Practical Nurse today this shift.
[2020-04-07 20:00] VITALS: BP 139/79
--- NOTE | 2020-04-08 03:22 | NUR ---
I have reviewed this patient and I concur with the Shift Assessment completed by the Licensed Practical Nurse today this shift.
[2020-04-08 04:00] VITALS: BP 136/86
--- NOTE | 2020-04-08 07:45 | NUR ---
DENIES NEEDS AT PRESENT. CALL LIGHT IN REACH
[2020-04-08 07:50] LABS: HEMATOCRIT 26.2 % (36.0-48.0); HEMOGLOBIN 8.4 g/dL (12-16); MCH 27.1 pg (26.0-34.0); MCHC 32.1 g/dL (31.0-37.0); MCV 84.5 fL (80.0-100.0); PLATELET COUNT 648 10x3/uL (130-400); RDW 23.5 % (11.5-14.5); WBC 21.4 10x3/uL (4.8-10.8)
[2020-04-08 07:52] LABS: CARBON DIOXIDE 27.6 mmol/L (21.0-32.0); CHLORIDE - SERUM 106 mmol/L (98-107); GLUCOSE 101 mg/dL (74-106); POTASSIUM - SERUM 3.7 mmol/L (3.5-5.1); SODIUM 141 mmol/L (136-145); eGFR NON AFRICAN AMERICAN 81 mL/min (90-120)
[2020-04-08 07:57] LABS: CALC OSMOLALITY 282 mosm/kg (275-300); CREATININE - SERUM 0.8 mg/dL (0.6-1.3); UREA NITROGEN 17 mg/dL (7-18)
[2020-04-08 09:10] VITALS: BP 122/82
[2020-04-08 09:14] LABS: ANISOCYTOSIS 1+; LYMPHOCYTES 18 % (15-50); MONOCYTES 14 % (2-11); NEUTROPHILS 66 % (40-80); PLATELET ESTIMATE INCREASED; POIKILOCYTOSIS 1+
[2020-04-08 09:15] LABS: TARGET CELLS 2+
[2020-04-08 12:13] VITALS: BP 131/81
[2020-04-08 16:17] VITALS: BP 127/78
[2020-04-08 20:00] VITALS: BP 132/81
[2020-04-09] VITALS: BP 149/80
--- NOTE | 2020-04-09 03:24 | NUR ---
I have reviewed this patient and I concur with the Shift Assessment completed by the Licensed Practical Nurse today this shift.
[2020-04-09 04:00] VITALS: BP 137/68
[2020-04-09 08:33] VITALS: BP 144/77
[2020-04-09 12:33] VITALS: BP 143/83
--- NOTE | 2020-04-09 14:17 | MORECARE ---
CASE MANAGEMENT DISCHARGE SUMMARY PATIENT: MADISON MARTINEZ UNIT: [id number] ADM DATE: 03/27/20 AGE: 49 : 72 SEX: F ROOM/BED: D.2223 AUTHOR: HIPOLITO AGUSTIN PHYSICIAN: REFERRING PHYSICIAN: MARIA T YOUNG MD DATE OF SERVICE: 04/09/20 Discharge Plan Patient Name: MADISON MARTINEZ Facility: [facility]:[place] : 1970 Planned Disposition: Home Anticipated Discharge Date: Discharge Date: Expected LOS: Initial Reviewer: [email or web address] Initial Review Date: 03/27/2020 Generated: 04/09/20 3:16 pm Comments DCP- Discharge Planning Updated by [email or web address]: Isabel Henry on 04/09/20 1:[address] Patient Name: MADISON MARTINEZ Admission Status: ER Accout number: [id number] Admission Date: 03-27-2020 : 1970 Admission Diagnosis:SHORTNESS OF BREATH Attending: MARIA T YOUNG Current LOS: 13 Anticipated DC Date: Planned Disposition: Home Primary Insurance: UNINSURED DISCOUNT PLAN Discharge Planning Comments: APPLICATION FORMS FAXED TO [employer] FOR ASSISTANCE WITH [employer] MEDICATION. CM TO FOLLOW AND ASSIST NEEDED. Graduate Teacher Education: Isabel Henry DCP- Discharge Planning Updated by [email or web address]: Lili Ruffin on 03/31/20 2:[address] Patient Name: MADISON MARTINEZ Admission Status: ER Accout number: [id number] Admission Date: 03-27-2020 : 1970 Admission Diagnosis:SHORTNESS OF BREATH Attending: MARIA T YOUNG Current LOS: 4 Anticipated DC Date: Planned Disposition: Home Primary Insurance: UNINSURED DISCOUNT PLAN Discharge Planning Comments: CM met with patient to complete initial dc planning assessment. CM educated patient on the CM role and verbal consent given by patient to complete assessment. CM verified patient's address, phone number, and emergency contact phone numbers. Patient lives at home with a significant other. At discharge patient plans to return home and feels this is a safe discharge. The emergency contact officer is Alisa her daughter at [phone]. CM discussed availability of home health, rehab services, and medical equipment. The patient has been on continuous oxygen since admission. CM anticipates the need for home and portable oxygen. CM provided pace for oxygen at 172.66 per month. Patient states she can afford this and is in agreement for home oxygen if needed. Patient denies other known discharge needs at this time. SABRINA signed for [facility], declination signed for HH or DME services. Transportation provider at discharge will be her daughter. CM will continue to follow and will assist as needed with dc plans/needs. Graduate Teacher Education: Lili Ruffin DCPIA - Discharge Planning Initial Assessment Updated by [email or web address]: Lili Ruffin on 03/31/20 3:53 pm * Is the patient Alert and Oriented? Yes * How many steps to enter\exit or inside your home? 0/0 * PCP none * Pharmacy [facility] on [facility] * Preadmission Environment Home with Family * ADLs Independent * Equipment None * List name and contact numbers for known caregivers / representatives who currently or will assist patient after discharge: Daughter Alisa [phone] * Verbal permission to speak to the caregivers and representatives has been obtained from the patient. Yes * Community resources currently utilized None * Additional services required to return to the preadmission environment? Yes * Can the patient safely return to the preadmission environment? Yes * Has this patient been hospitalized within the prior 30 days at any hospital? No Coverage Notice Reviewer: [id number] - Lili Ruffin Notice Issued Date-Time: 03/31/2020 15:30 Notice Type: Patient Choice Letter Notice Delivered To: Patient Relationship to Patient: Tongue And Groove Machine Feeder Name: Delivery Method: HAND - Hand Delivered Lavinia Days: Prior Verbal Notification: Recipient Understood Notice: Yes Recipient Signature: Yes Med Rec Note Co-signed by Attending: Coverage Notice Comment: SABRINA for [facility]. Declination signed for DME, or HH Last DP export: 04/07/20 8:19 a Patient Name: MADISON MARTINEZ Page 51733 at 1417 All edits/amendments must be made on the electronic document DICTATION DATE: 04/09/20 1416 DETAILER PHARMACEUTICALS: CHAD 04/09/20 141 RPT#: [id number] DC DATE: STATUS: ADM IN [facility] [address] [place] [address] END OF REPORT
[2020-04-09 17:26] VITALS: BP 145/82
--- NOTE | 2020-04-09 19:00 | NUR ---
I HAVE REVIEWED THIS PT AND I CONCUR WITH THE SHIFT ASSESSMENT COMPLETED BY THE PHYSICS PROFESSOR TODAY.
[2020-04-09 20:00] VITALS: BP 136/70
[2020-04-10] VITALS: BP 132/76
[2020-04-10 04:00] VITALS: BP 134/87
--- NOTE | 2020-04-10 04:13 | NUR ---
I have reviewed this patient and I concur with the Shift Assessment completed by the Licensed Practical Nurse today this shift.
[2020-04-10 08:00] LABS: ALBUMIN 2.3 g/dL (3.4-5.0); ALKALINE PHOSPHATASE 121 U/L (30-120); ALT (SGPT) 14 U/L (10-68); BILIRUBIN - TOTAL 0.69 mg/dL (0.2-1.3); CALC OSMOLALITY 274 mosm/kg (275-300); CALCIUM 8.6 mg/dL (8.5-10.1); CARBON DIOXIDE 24.8 mmol/L (21.0-32.0); CHLORIDE - SERUM 106 mmol/L (98-107); CREATININE - SERUM 0.6 mg/dL (0.6-1.3); GLUCOSE 98 mg/dL (74-106); PROTEIN - SERUM 6.1 g/dL (6.4-8.2); SODIUM 138 mmol/L (136-145); VANCOMYCIN - TROUGH 16.6 ug/mL (10.0-20.0); eGFR NON AFRICAN AMERICAN > 90 mL/min (90-120)
[2020-04-10 08:02] LABS: UREA NITROGEN 11 mg/dL (7-18)
[2020-04-10 08:34] VITALS: BP 145/88
[2020-04-10 08:45] LABS: MCH 26.8 pg (26.0-34.0); MCHC 31.3 g/dL (31.0-37.0); MCV 85.7 fL (80.0-100.0); MEAN PLATELET VOLUME 9.4 fL (7.4-10.4); PLATELET COUNT 651 10x3/uL (130-400); RDW 23.8 % (11.5-14.5); WBC 18.4 10x3/uL (4.8-10.8)
[2020-04-10 08:48] LABS: HEMOGLOBIN 7.5 g/dL (12-16)
--- NOTE | 2020-04-10 09:00 | NUR ---
ALERT AND ORIENTED WITH DR. YOUNG HERE AT THIS TIME 02 SAT 94% ON RA. NOTIFIED OF HEMOGLOBIN OF 7.5 WITH NEW ORDER FOR FERROUS SULFATE. IVF INTACT TO RT. F/A WITH NO S/S OF INFECTION/INFILTRATION. NO DYSPNEA NOTED. ENCOUARAGED TO USE CALL LIGHT FOR ASSIST.
[2020-04-10 09:52] LABS: EOSINOPHILS 1 % (0-7); LYMPHOCYTES 20 % (15-50); MONOCYTES 11 % (2-11); NEUTROPHILS 63 % (40-80); PLATELET ESTIMATE INCREASED; POIKILOCYTOSIS OCC
[2020-04-10 09:53] LABS: ANISOCYTOSIS 1+; ROULEAUX OCC
[2020-04-10 12:55] VITALS: BP 152/87
[2020-04-10] MEDS ORDERED: FERROUS SULFAT325 MG PO (13:11)
[2020-04-10] MEDS ORDERED: AUGMENTIN 875-11 TAB PO (15:04)
--- NOTE | 2020-04-10 15:44 | MORECARE ---
CASE MANAGEMENT DISCHARGE SUMMARY PATIENT: MADISON MARTINEZ UNIT: [id number] ADM DATE: 03/27/20 AGE: 49 : 72 SEX: F ROOM/BED: D.2223 AUTHOR: HIPOLITO AGUSTIN PHYSICIAN: REFERRING PHYSICIAN: MARIA T YOUNG MD DATE OF SERVICE: 04/10/20 Discharge Plan Patient Name: MADISON MARTINEZ Facility: [facility]:[place] : 1970 Planned Disposition: Home Anticipated Discharge Date: Discharge Date: Expected LOS: Initial Reviewer: [id number] Initial Review Date: 03/27/2020 Generated: 04/10/20 4:43 pm Comments DCP- Discharge Planning Updated by [id number]: Isabel Henry on 04/10/20 2:[address] Patient Name: MADISON MARTINEZ Admission Status: ER Accout number: [id number] Admission Date: 03-27-2020 : 1970 Admission Diagnosis:SHORTNESS OF BREATH Attending: MARIA T YOUNG Current LOS: 14 Anticipated DC Date: Planned Disposition: Home Primary Insurance: UNINSURED DISCOUNT PLAN Discharge Planning Comments: 2 WEEKS OF ELIQUIS SAMPLES GIVEN TO PATIENT FROM DR. YOUNG. [facility] IS CLOSED TODAY SO I WILL CALL MONDAY TO SCHEDULE PATIENT AN APPOINTMENT. COPPIES OF DOCUMENTS FOR ASSISTANCE WITH ELIQUIS GIVEN TO PATIENT. CM WILL FOLLOW AND ASSIST NEEDED. Medical Lead: Isabel Henry DCP- Discharge Planning Updated by [id number]: Isabel Henry on 04/09/20 1:[address] Patient Name: MADISON MARTINEZ Admission Status: ER Accout number: [id number] Admission Date: 03-27-2020 : 1970 Admission Diagnosis:SHORTNESS OF BREATH Attending: MARIA T YOUNG Current LOS: 13 Anticipated DC Date: Planned Disposition: Home Primary Insurance: UNINSURED DISCOUNT PLAN Discharge Planning Comments: APPLICATION FORMS FAXED TO [facility] [employer] FOR ASSISTANCE WITH ELIQUIS MEDICATION. CM TO FOLLOW AND ASSIST NEEDED. Medical Lead: Isabel Henry DCP- Discharge Planning Updated by [id number]: Lili Ruffin on 03/31/20 2:[address] Patient Name: MADISON MARTINEZ Admission Status: ER Accout number: [id number] Admission Date: 03-27-2020 : 1970 Admission Diagnosis:SHORTNESS OF BREATH Attending: MARIA T YOUNG Current LOS: 4 Anticipated DC Date: Planned Disposition: Home Primary Insurance: UNINSURED DISCOUNT PLAN Discharge Planning Comments: CM met with patient to complete initial dc planning assessment. CM educated patient on the CM role and verbal consent given by patient to complete assessment. CM verified patient's address, phone number, and emergency contact phone numbers. Patient lives at home with a significant other. At discharge patient plans to return home and feels this is a safe discharge. The emergency photoresist contact printer is Alisa her daughter at [phone]. CM discussed availability of home health, rehab services, and medical equipment. The patient has been on continuous oxygen since admission. CM anticipates the need for home and portable oxygen. CM provided pace for oxygen at 172.66 per month. Patient states she can afford this and is in agreement for home oxygen if needed. Patient denies other known discharge needs at this time. SABRINA signed for [facility], declination signed for HH or DME services. Transportation provider at discharge will be her daughter. CM will continue to follow and will assist as needed with dc plans/needs. Medical Lead: Lili Ruffin DCPIA - Discharge Planning Initial Assessment Updated by [id number]: Lili Ruffin on 03/31/20 3:53 pm * Is the patient Alert and Oriented? Yes * How many steps to enter\exit or inside your home? 0/0 * PCP none * Pharmacy [facility] * Preadmission Environment Home with Family * ADLs Independent * Equipment None * List name and contact numbers for known caregivers / representatives who currently or will assist patient after discharge: Daughter Alisa [phone] * Verbal permission to speak to the caregivers and representatives has been obtained from the patient. Yes * Community resources currently utilized None * Additional services required to return to the preadmission environment? Yes * Can the patient safely return to the preadmission environment? Yes * Has this patient been hospitalized within the prior 30 days at any hospital? No Coverage Notice Reviewer: [id number] - Lili Ruffin Notice Issued Date-Time: 03/31/2020 15:30 Notice Type: Patient Choice Letter Notice Delivered To: Patient Relationship to Patient: Memory Care Program Resident Name: Delivery Method: HAND - Hand Delivered Lavinia Days: Prior Verbal Notification: Recipient Understood Notice: Yes Recipient Signature: Yes Med Rec Note Co-signed by Attending: Coverage Notice Comment: SABRINA for [employer]. Declination signed for DME, or HH Last DP export: 04/09/20 1:17 p Patient Name: MADISON MARTINEZ Page [id number] at 1544 All edits/amendments must be made on the electronic document DICTATION DATE: 04/10/201543 BRONC BUSTER: CHAD 04/10/20 154 RPT#: [id number] DC DATE: STATUS: ADM IN [facility] [address] [place] [address] END OF REPORT
--- NOTE | 2020-04-10 17:37 | NUR ---
IV DISCONTINUED AND VERBALIZED UNDERSTANDING OF DISCHARGE INSTRUCTIONS. STABLE AT TIME OF DISCHARGE UNDER CARE OF FAMILY
--- NOTE | 2020-04-13 08:41 | MORECARE ---
CASE MANAGEMENT DISCHARGE SUMMARY PATIENT: MADISON MARTINEZ UNIT: [id number] ADM DATE: 03/27/20 AGE: 49 : 72 SEX: F ROOM/BED: D.2223 AUTHOR: HIPOLITO AGUSTIN PHYSICIAN: REFERRING PHYSICIAN: MARIA T YOUNG MD DATE OF SERVICE: 04/13/20 Discharge Plan Patient Name: MADISON MARTINEZ Facility: [facility]:[place] : 1970 Planned Disposition: Home Anticipated Discharge Date: Discharge Date: 04/10/2020 Expected LOS: Initial Reviewer: [email or web address] Initial Review Date: 03/27/2020 Generated: 04/13/20 9:40 am Comments DCP- Discharge Planning Updated by [email or web address]: Isabel Henry on 04/10/20 2:[address] Patient Name: MADISON MARTINEZ Admission Status: ER Accout number: [id number] Admission Date: 03-27-2020 : 1970 Admission Diagnosis:SHORTNESS OF BREATH Attending: MARIA T YOUNG Current LOS: 14 Anticipated DC Date: Planned Disposition: Home Primary Insurance: UNINSURED DISCOUNT PLAN Discharge Planning Comments: 2 WEEKS OF ELIQUIS SAMPLES GIVEN TO PATIENT FROM DR. YOUNG. [facility] IS CLOSED TODAY SO I WILL CALL MONDAY TO SCHEDULE PATIENT AN APPOINTMENT. COPPIES OF DOCUMENTS FOR ASSISTANCE WITH ELIQUIS GIVEN TO PATIENT. CM WILL FOLLOW AND ASSIST NEEDED. Electoral Officer: Isabel Henry DCP- Discharge Planning Updated by [email or web address]: Isabel Henry on 04/09/20 1:[address] Patient Name: MADISON MARTINEZ Admission Status: ER Accout number: [id number] Admission Date: 03-27-2020 : 1970 Admission Diagnosis:SHORTNESS OF BREATH Attending: MARIA T YOUNG Current LOS: 13 Anticipated DC Date: Planned Disposition: Home Primary Insurance: UNINSURED DISCOUNT PLAN Discharge Planning Comments: APPLICATION FORMS FAXED TO [employer] FOR ASSISTANCE WITH ELIQUIS MEDICATION. CM TO FOLLOW AND ASSIST NEEDED. Electoral Officer: Isabel Henry DCP- Discharge Planning Updated by [id number]: Lili Ruffin on 03/31/20 2:[address] Patient Name: MADISON MARTINEZ Admission Status: ER Accout number: [id number] Admission Date: 03-27-2020 : 1970 Admission Diagnosis:SHORTNESS OF BREATH Attending: MARIA T YOUNG Current LOS: 4 Anticipated DC Date: Planned Disposition: Home Primary Insurance: UNINSURED DISCOUNT PLAN Discharge Planning Comments: CM met with patient to complete initial dc planning assessment. CM educated patient on the CM role and verbal consent given by patient to complete assessment. CM verified patient's address, phone number, and emergency contact phone numbers. Patient lives at home with a significant other. At discharge patient plans to return home and feels this is a safe discharge. The emergency shampoo person is Alisa her daughter at [phone]. CM discussed availability of home health, rehab services, and medical equipment. The patient has been on continuous oxygen since admission. CM anticipates the need for home and portable oxygen. CM provided pace for oxygen at 172.66 per month. Patient states she can afford this and is in agreement for home oxygen if needed. Patient denies other known discharge needs at this time. SABRINA signed for [facility], declination signed for or DME services. Transportation provider at discharge will be her daughter. CM will continue to follow and will assist as needed with dc plans/needs. Electoral Officer: Lili Ruffin DCPIA - Discharge Planning Initial Assessment Updated by [id number]: Lili Ruffin on 03/31/20 3:53 pm * Is the patient Alert and Oriented? Yes * How many steps to enter\exit or inside your home? 0/0 * PCP none * Pharmacy [facility] * Preadmission Environment Home with Family * ADLs Independent * Equipment None * List name and contact numbers for known caregivers / representatives who currently or will assist patient after discharge: Daughter Alisa [phone] * Verbal permission to speak to the caregivers and representatives has been obtained from the patient. Yes * Community resources currently utilized None * Additional services required to return to the preadmission environment? Yes * Can the patient safely return to the preadmission environment? Yes * Has this patient been hospitalized within the prior 30 days at any hospital? No Coverage Notice Reviewer: [id number] - Lili Ruffin Notice Issued Date-Time: 03/31/2020 15:30 Notice Type: Patient Choice Letter Notice Delivered To: Patient Relationship to Patient: Mixing Plant Dumper Name: Delivery Method: HAND - Hand Delivered Lavinia Days: Prior Verbal Notification: Recipient Understood Notice: Yes Recipient Signature: Yes Med Rec Note Co-signed by Attending: Coverage Notice Comment: SABRINA for [employer]. Declination signed for DME, or HH Last DP export: 04/10/20 2:44 p Patient Name: MADISON MARTINEZ Page 55071 at 0841 All edits/amendments must be made on the electronic document DICTATION DATE: 04/13/20840 SHIPMASTER: CHAD 04/13/20840 RPT#: [id number] DC DATE:04/10/20 STATUS: DIS IN [facility] [address] [place] [address] END OF REPORT
--- NOTE | 2020-04-13 09:08 | OP ---
PATIENT NAME: MADISON MARTINEZ MEDICAL RECORD: [id number] :[birth year] LOCATION:D.MS Norris2223 ADMISSION DATE:03/27/20 SURGEON: DENISE KING MD DATE OF OPERATION: 03/28/2020 PROCEDURE: Left heart catheterization, selective coronary angiography, right femoral artery approach. CATHETERS: A 5-Uzbek sheath, 5/4 left and right Prasnana, 5/4 pig. The procedure was well tolerated. The patient returned to encarnacion, sheath removed. ExoSeal device placed. FINDINGS: Left ventriculography in 30-degree ANDERS view: Normal wall motion and normal systolic function. CORONARY ANATOMY: LEFT MAIN: Left main is free of disease. LAD: Free of disease in the diagonal system. CIRCUMFLEX: Free of disease in the marginal system. RIGHT CORONARY ARTERY: Dominant artery, gives rise to PDA, free of disease. IMPRESSION: Normal left ventricular systolic function, normal coronary anatomy, maybe demand ischemia, type 2 myocardial infarction at this point. TRANSINT:[id number] Voice Confirmation ID: [id number] DOCUMENT ID: [id number] DENISE KING MD at 0908 CC: [id number] DICTATION DATE: 03/28/20 1006 GATE PERSON: 03/28/20 1408 DIS IN 04/10/20 [facility] [address] [place] [place] [address]
--- NOTE | 2020-04-13 09:08 | EC ---
PATIENT:MADISON MARTINEZ DATE OF SERVICE: 03/27/20 SEX: F MEDICAL RECORD: [id number] DATE OF : [birth year] LOCATION:D.MS Patel AGE OF PATIENT: 49 ADMISSION DATE: 03/27/20 REFERRING PHYSICIAN: INTERPRETING PHYSICIAN: DENISE KING MD ECHOCARDIOGRAM REPORT ECHO CHARGES 4 ECHO COMPLETE Date: 03/28/20 CLINICAL DIAGNOSIS: [facility] ECHOCARDIOGRAPHIC MEASUREMENTS (adult normal given) AC root (d.<3.7cm) 3.2 cm LV Septum d (<1.2 cm> 1.7 cm Valve Excursion 1.4 cm LV Septum (systole) 2.2 cm Left Atria (s.<4.0cm> 3.3 cm LVPW d(<1.2cm) 1.4 cm RV (d.<2.3cm) 4.7 cm LVPW (sytole) 1.8 cm LV diastole(<5.6CM) 3.7 cm MV E-F(>70mm/sec) cm LV systole 2.2 cm LVOT Diameter 1.9 cm MV exc.(>10mm) 1.5 cm Est.ejection fraction (50-75%) % DOPPLER: LVIT cm/sec A 77.0 cm/sec E 61.0 cm/sec LA cm/sec RVSP 84 mmHg LVOT 96 cm/sec AOP1/2T m/s Asc. Ao 127 cm/sec RVOT 69 cm/sec RA cm/sec PA 100 cm/sec AV Gradient Peak 6.47 mmHg AV Mean 3.37 mmHg AV Area 2.7 cm MV Gradient Peak 4.33 mmHg MV Mean 1.81 mmHg MV Area cm COMMENTS: Assembler Bicycle: 2 DARYL SENIOR Facing Baster: 3 Dr. Ragsdale TAPE# PACS Pericardial Effusion N DATE OF SERVICE: Adequate 2D, color flow imaging, spectral Doppler, and M-Mode. LVH is present. LV internal dimensions are normal. Wall motion is normal. EF is greater than or equal to 55%. Aortic valve is tricuspid. No evidence of stenosis by Doppler interrogation. Left atrium is normal at 3.3 cm. Mitral valve shows no prolapse. Trivial MR. Right-sided chambers are enlarged. There is severe TR. RV systolic pressure is estimated at greater than or equal to 84 mmHg via the continuity equation. ECHOCARDIOGRAM REPORT [id number] MADISON MARTINEZ TRANSINT:[id number] Voice Confirmation ID: [id number] DOCUMENT ID: [id number] DENISE KING MD at 0908 CC: [id number] DICTATION DATE: 03/29/20 1037 SERVICE CLEANER: 03/29/20 1518 DIS IN 04/10/[address] [facility] [address] [place] [id number]
--- NOTE | 2020-04-13 09:08 | CN ---
PATIENT NAME:MADISON MARTINEZ MEDICAL RECORD: [id number] : [birth year] LOCATION:D.MS Norris2223 ADMIT DATE: 03/27/20 ACCOUNT: [id number] CONSULTING PHYSICIAN: DENISE KING MD REFERRING PHYSICIAN: MARIA T YOUNG MD DATE OF CONSULTATION: 03/28/2020 HISTORY OF PRESENT ILLNESS: A 49-year-old female with strong family history of coronary artery disease, ongoing tobacco use, pulmonary embolus back in July of this year, presented with chest pain, dyspnea, shortness of breath, found to have elevated cardiac enzymes consistent with NSTEMI, has strong family history of coronary artery disease. EKG shows nonspecific ST-T changes inferolaterally. We are asked to see her concerning her cardiovascular status. PAST MEDICAL HISTORY: Includes history of pulmonary embolus. ALLERGIES: None known. MEDICATIONS: Include Eliquis 10 mg p.o. b.i.d. (ran out this agent recently), folic acid 1 mg p.o. every day, aspirin 81 every day. SOCIAL HISTORY: Smokes about a pack a day, nondrinker and no illicit drug use. Easily takes care of all her ADLs. REVIEW OF SYSTEMS: The patient reports easy bruising but reports no swollen glands. The patient reports no fever, no night sweats, no significant weight gain, no significant weight loss. No significant exercise tolerance. The patient reports no dry eyes, no irritation, no vision change. Patient reports no difficulty hearing and no ear pain. Patient reports no frequent nose bleeds or nose and sinus problems. Patient reports on arm pain on exertion. No shortness of breath while lying down. No history of heart murmur. Patient reports no cough, no wheezing or coughing up blood. Patient reports no abdominal pain, no vomiting. Normal appetite. No diarrhea and not vomiting blood. No nausea and no constipation. Patient reports no incontinence. No difficulty urinating. No hematuria. No increased frequency. Patient reports no muscle aches. No weakness, no arthralgias, no back pain. No swelling of the extremities. Patient reports no abnormal mole, no jaundice, no rashes. Reports no loss of consciousness. No weakness and no numbness. No seizures, dizziness, or headaches. The patient reports no depression, no sleep disturbance, feeling safe in a relationship and no alcohol abuse. Patient reports on fatigue. Reports no runny nose or sinus pressure. No itching, no hives, and no frequent sneezing. PHYSICAL EXAMINATION: GENERAL: Comfortable appearing, no acute distress. VITAL SIGNS: Blood pressure 132/65, pulse 94 and regular. HEENT: Normocephalic and atraumatic. NECK: No bruits noted. HEART: Regular. Questionable I/ systolic ejection murmur versus 1-component rub. LUNGS: Diminished air excursion. Few expiratory wheezes. ABDOMEN: Soft, nontender. EXTREMITIES: Pulses 2+ with no edema. DIAGNOSTIC DATA: EKG shows nonspecific ST-T changes inferolaterally. CONSULT REPORT [id number] MADISON MARTINEZ IMPRESSION: Non-ST elevation myocardial infarction. PLAN: For angiography, intervention based on the above. TRANSINT:[id number] Voice Confirmation ID: [id number] DOCUMENT ID: [id number] DENISE KING MD at 0908 CC: [id number] DICTATION DATE: 03/28/20 0947 CERTIFIED MEDICAL TECHNICIAN: 03/28/20 1403 DIS IN 04/10/20 [address] [place] [address]
--- NOTE | 2020-04-13 16:56 | MORECARE ---
CASE MANAGEMENT DISCHARGE SUMMARY PATIENT: MADISON MARTINEZ UNIT: [id number] ADM DATE: 03/27/20 AGE: 49 : 72 SEX: F ROOM/BED: D.2223 AUTHOR: HIPOLITO AGUSTIN PHYSICIAN: REFERRING PHYSICIAN: MARIA T YOUNG MD DATE OF SERVICE: 04/13/20 Discharge Plan Patient Name: MADISON MARTINEZ Facility: [facility]:[place] : 1970 Planned Disposition: Home Anticipated Discharge Date: Discharge Date: 04/10/2020 Expected LOS: Initial Reviewer: [email or web address] Initial Review Date: 03/27/2020 Generated: 04/13/20 5:55 pm Comments DCP- Discharge Planning Updated by [email or web address]: Isabel Henry on 04/13/20 3:[address] Patient Name: MADISON MARTINEZ Admission Status: ER Accout number: [id number] Admission Date: 03-27-2020 : 1970 Admission Diagnosis:SHORTNESS OF BREATH Attending: MARIA T YOUNG Current LOS: 14 Anticipated DC Date: Planned Disposition: Home Primary Insurance: UNINSURED DISCOUNT PLAN Discharge Planning Comments: CM SCHEDULED PATIENT APPOINTMENT WITH [facility] FOR April AT 1020. PATIENT CALLED AND NOTIFIED. CM TO FOLLOW AND ASSIST NEEDED. Director Of Finance: Isabel Henry DCP- Discharge Planning Updated by [id number]: Isabel Henry on 04/10/20 2:[address] Patient Name: MADISON MARTINEZ Admission Status: ER Accout number: [id number] Admission Date: 03-27-2020 : 1970 Admission Diagnosis:SHORTNESS OF BREATH Attending: MARIA T YOUNG Current LOS: 14 Anticipated DC Date: Planned Disposition: Home Primary Insurance: UNINSURED DISCOUNT PLAN Discharge Planning Comments: 2 WEEKS OF ELIQUIS SAMPLES GIVEN TO PATIENT FROM DR. YOUNG. [facility] [employer] IS CLOSED TODAY SO I WILL CALL MONDAY TO SCHEDULE PATIENT AN APPOINTMENT. COPPIES OF DOCUMENTS FOR ASSISTANCE WITH ELIQUIS GIVEN TO PATIENT. CM WILL FOLLOW AND ASSIST NEEDED. Director Of Finance: Isabel Henry DCP- Discharge Planning Updated by [email or web address]: Isabel Henry on 04/09/20 1:[address] Patient Name: MADISON MARTINEZ Admission Status: ER Accout number: [id number] Admission Date: 03-27-2020 : 1970 Admission Diagnosis:SHORTNESS OF BREATH Attending: MARIA T YOUNG Current LOS: 13 Anticipated DC Date: Planned Disposition: Home Primary Insurance: UNINSURED DISCOUNT PLAN Discharge Planning Comments: APPLICATION FORMS FAXED TO [employer] FOR ASSISTANCE WITH ELIQUIS MEDICATION. CM TO FOLLOW AND ASSIST NEEDED. Director Of Finance: Isabel Henry DCP- Discharge Planning Updated by [email or web address]: Lili Ruffin on 03/31/20 2:[address] Patient Name: MADISON MARTINEZ Admission Status: ER Accout number: [id number] Admission Date: 03-27-2020 : 1970 Admission Diagnosis:SHORTNESS OF BREATH Attending: MARIA T YOUNG Current LOS: 4 Anticipated DC Date: Planned Disposition: Home Primary Insurance: UNINSURED DISCOUNT PLAN Discharge Planning Comments: CM met with patient to complete initial dc planning assessment. CM educated patient on the CM role and verbal consent given by patient to complete assessment. CM verified patient's address, phone number, and emergency contact phone numbers. Patient lives at home with a significant other. At discharge patient plans to return home and feels this is a safe discharge. The emergency animal impersonator is Alisa her daughter at [phone]. CM discussed availability of home health, rehab services, and medical equipment. The patient has been on continuous oxygen since admission. CM anticipates the need for home and portable oxygen. CM provided pace for oxygen at 172.66 per month. Patient states she can afford this and is in agreement for home oxygen if needed. Patient denies other known discharge needs at this time. SABRINA signed for [facility], declination signed for HH or DME services. Transportation provider at discharge will be her daughter. CM will continue to follow and will assist as needed with dc plans/needs. Director Of Finance: Lili Ruffin DCPIA - Discharge Planning Initial Assessment Updated by [email or web address]: Lili Ruffin on 03/31/20 3:53 pm * Is the patient Alert and Oriented? Yes * How many steps to enter\exit or inside your home? 0/0 * PCP none * Pharmacy [facility] * Preadmission Environment Home with Family * ADLs Independent * Equipment None * List name and contact numbers for known caregivers / representatives who currently or will assist patient after discharge: Daughter Alisa [phone] * Verbal permission to speak to the caregivers and representatives has been obtained from the patient. Yes * Community resources currently utilized None * Additional services required to return to the preadmission environment? Yes * Can the patient safely return to the preadmission environment? Yes * Has this patient been hospitalized within the prior 30 days at any hospital? No Coverage Notice Reviewer: [id number] Sunitha Ruffin Notice Issued Date-Time: 03/31/2020 15:30 Notice Type: Patient Choice Letter Notice Delivered To: Patient Relationship to Patient: Web Site Project Manager Name: Delivery Method: HAND - Hand Delivered Lavinia Days: Prior Verbal Notification: Recipient Understood Notice: Yes Recipient Signature: Yes Med Rec Note Co-signed by Attending: Coverage Notice Comment: SABRINA for [employer]. Declination signed for MARCIO, or [facility] Last DP export: 04/13/20 7:41 a Patient Name: MADISON MARTINEZ Page 44438 at 1656 All edits/amendments must be made on the electronic document DICTATION DATE: 04/13/20 1655 WASH CREW PERSON: CHAD 04/13/20 1655 RPT#: [id number] DC DATE:04/10/20 STATUS: DIS IN [facility] [address] [place] [address] END OF REPORT
== END 2020-04-10 17:37 | disposition home or self-care (01) | DRG 280 ==
LOC: D.ER 08:14 → D.ICU 12:37 → D.EDHOLD 12:37 → D.MS 12:37 → D.M2 12:37 → D.ICU 04-03 18:38 → D.MS 04-06 17:20
PROVIDERS: Family Medicine; Internal Medicine; Internal Medicine Interventional Cardiology; Internal Medicine Pulmonary Disease; ADMIT Family Medicine; ATTEND Family Medicine
PROC: B2151ZZ Fluoroscopy of Left Heart using Low Osmolar Contrast (ICD-10-PCS; 2020-03-28)
PROC: 4A023N7 Measurement of Cardiac Sampling and Pressure, Left Heart, Percutaneous Approach (ICD-10-PCS; 2020-03-28)
PROC: B2111ZZ Fluoroscopy of Multiple Coronary Arteries using Low Osmolar Contrast (ICD-10-PCS; principal; 2020-03-28 09:20)
DX: I50.21 Acute systolic (congestive) heart failure (principal); I21.A1 Myocardial infarction type 2; J18.9 Pneumonia, unspecified organism; N17.0 Acute kidney failure with tubular necrosis; J44.1 Chronic obstructive pulmonary disease with (acute) exacerbation; E87.1 Hypo-osmolality and hyponatremia; J44.0 Chronic obstructive pulmonary disease with (acute) lower respiratory infection; K56.7 Ileus, unspecified; N39.0 Urinary tract infection, site not specified; D57.1 Sickle-cell disease without crisis; I48.0 Paroxysmal atrial fibrillation; E87.5 Hyperkalemia; Z87.891 Personal history of nicotine dependence; I95.9 Hypotension, unspecified

== ENCOUNTER 2020-10-01 13:00 | Outpatient (CLI) | payer SELFPAY ==
[2020-04-03 12:09] VITALS: BMI 41.7
[~2020-10-01 13:00] MED LIST changes: +AUGMENTIN 875-11 TAB PO; +FERROUS SULFAT325 MG PO
== END 2020-10-01 13:30 | disposition home or self-care (01) ==
LOC: D.MAMMO 13:00
PROVIDERS: ATTEND Family Medicine
DX: Z12.31 Encounter for screening mammogram for malignant neoplasm of breast (principal)